=== PATIENT | female | born 1940 | race Caucasian/White ===

== ENCOUNTER 2019-08-08 14:59 | Observation (INO) ==
[~2019-08-08 14:59] MED LIST: BREO ELLIPTA 100/25 MCG INH INH SCH; LASIX IV ONE; LASIX PO PRN; PHENERGAN PO PRN; SALINE LOCK IV FLUID XX ONE
[2019-08-08 15:51] LABS: BASO# 0.05 X1000 (0.0-0.2); BASO% 0.8 % (0.0-0.8); EOS# 0.19 X1000 (0.0-0.7); HEMATOCRIT 41.8 % (37.0-47.0); HEMOGLOBIN 12.5 g/dL (12.0-16.0); IMM GRAN# 0.02 X1000 (0.0-0.04); IMM GRAN% 0.3 % (0.0-0.5); LYMPH# 1.97 X1000 (1.2-3.4); LYMPH% 31.2 % (20.5-51.1); MCH 30.1 PG (27-31); MCHC 29.9 g/dL (33-37); MCV 100.7 FL (81-99); MONO# 0.58 X1000 (0.11-0.59); MONO% 9.2 % (1.7-9.3); MPV 10.5 FL (7.4-10.4); NEUT% 55.5 % (42.2-75.2); PLT 167 X1000 (130-400); RBC 4.15 XMIL (4.2-5.4); RDW 14.4 % (11.5-14.5); WBC 6.31 X1000 (4.8-10.8)
[2019-08-08] MEDS: NS 1,000 ML IV SCH (15:52)
[2019-08-08 16:04] LABS: INR 0.91; PROTIME 12.4 Seconds (11.0-16.0)
[2019-08-08 16:18] LABS: ALB/GLOB RATIO 1.1; ALBUMIN 4.2 g/dL (3.5-5.0); CALCIUM 9.2 mg/dL (8.8-10.2); CREATININE 1.3 mg/dL (0.5-0.9); POTASSIUM 5.4 mmol/L (3.5-5.1); TOTAL BILIRUBIN 0.21 mg/dL (0.20-1.00); TOTAL PROTEIN 8.1 g/dL (6.3-8.3)
[2019-08-08 16:54] LABS: FREE T4 1.05 ng/dL (0.93-1.70); TSH 1.74 uIUmL (0.27-4.20)
[2019-08-08] MEDS: CARAFATE PO SCH (20:28)
[2019-08-08] MEDS ORDERED: SYNTHROID PO SCH (21:00)
[2019-08-08] MEDS ORDERED: ZOLOFT PO SCH (21:00)
--- NOTE | 2019-08-08 23:06 | HISTORY AND PHYSICAL ---
ATTENDING PHYSICIAN: Dr. Hammad Amador. ADMITTING PHYSICIAN: Dr. Hammad Amador. CHIEF COMPLAINT: Palpations, lower extremity edema and progressive shortness of breath. Mrs. Saenz is a pleasant 79 -year-old female patient mine with multiple medical problems including but not limited to shortness of breath, morbid obesity, chronic low back pain, bilateral osteoarthrosis, vitamin D deficiency, diabetes historically poorly controlled complicated by the disseminated intravascular coagulation nephropathy, restless legs syndrome, overactive bladder, thyroid nodularity, cognitive decline, hypothyroidism, generalized abdominal pain, hypertension, chronic respiratory failure with hypoxia, chronic constipation, alpha 1 antitrypsin deficiency, abdominal hernia, bunion of right and left foot and hammertoe deformity. She presents to the clinic with shortness of breath progressing over the past several days stating she was normal however Thursday she was noted to have some dyspnea with exertion and dyspnea with rest, some palpitations which appearred to progress over the course of the weekend resulting in unfitfull sleep also some nonspecific increase in lower extremity edema over the past week. She does carry a diagnosis of hypertension historically poorly controlled as well as venous stasis chronic lower extremity edema and atherosclerotic coronary artery disease. She had a cardiac catheterization as recently in August 2018 but nonobstructive coronary disease following abnormal calcium score suggesting diffuse atherosclerosis. EKG is obtained in the clinic showing a leftward axis secondary to left anterior fascicular block this is unchanged, T-wave in V2 however is inverted, this is a new finding when compared to previous EKG dated 01/18/2019. This T-wave is a new EKG change, the T-wave amplitude is somewhat flattened in V3 as well. Based on the presence of new EEG changes when compared to January and now history of coronary disease patient is admitted to the internal medicine service for overnight observation and possible elective risk stratification. ALLERGIES: The patient is allergic to sulfa resulting in rash and Amitiza resulting in nausea. CURRENT MEDICATIONS: Zoloft 200 mg once daily, IVIG once monthly, supplemental oxygen 3 L, Co- Q10 100 mg once a day, Metamucil as directed, gabapentin 300 mg twice daily, vitamin D over the counter supplement 1000 international units once daily, vitamin C over the counter supplement, Breo 100/25 one puff once daily, Coreg 6.25 one p.o. b.i.d., supplemental B12 over the counter 1000 mcg, lactulose as directed, milk of magnesia as directed, Aricept 5 mg p.o. daily, potassium chloride 10 mEq p.o. daily, Mirapex 0.5 mg p.o. at bedtime, Reglan 5 mg per 5 mL 1 teaspoon t.i.d., Levothyroxine 150 mcg once daily, Phenergan 25 mg q.8 p.r.n., Pravachol 40 mg p.o. at bedtime, Prilosec timm-ler-yekrbsr 20 mg p.o. daily, Zanaflex 4 mg q.8 hours p.r.n., Lasix 40 mg b.i.d., Aldactone 25 mg every other day for lower extremity swelling. FAMILY HISTORY: Father colon cancer 83, mother 82 kidney failure and Alzheimer's, sister diagnosed colon cancer 2015, sister 73 [place]ree no issues, sister [place] 71 from heart failure, COPD and lymphoma, sister 69 heart failure, COPD and kidney failure, sister 66 diagnosed with ovarian cancer 2018 also with dementia issues. Patient is with 4 children 56, 55, 53 and 44, 5 grandchildren and 3 great-grandchildren. Patient for 58 years in 2019 having been in 1961. 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 PAST SURGERIES: Back surgery with herniated disk 2006, cataract surgery left side 2015, cholecystectomy in 2008, pre Lap-Band surgery with Dr. Michelle, hysterectomy without oophorectomy in 1981 for dysfunctional uterine bleeding, Lap-Band procedure in 2008 with multiple complications eventually leading to permanent longstanding gastroparesis with feeding tube, Lap- Band removal in 2008, Botox injections in 2013 and 2015 for overactive bladder. SPECIALTY CARE: Patient does have a drink mixer Dr. Kohli, sleeping car conductor Dr. Yanes, certified master safe technician oncologist Dr. Mao, she is a pain clinic patient, she sees Dr. Taylor on a regular basis and Dr. Parada, the last annual wellness visit February 2019, her last comprehensive reassessment and annual exam in January . REVIEW OF SYSTEMS: Twelve-point review of systems is unremarkable except that noted within the HPI. Cardiac catheterization in 2018 showing 30% LAD, 20% RCA, 60% ejection fraction and a negative stress test noted to be September 2016, last cardiac echocardiogram noted to be September 2016, some additional studies over the past [address] scan of the abdomen and pelvis in January, calcium scoring the fall, CT scan of the chest in the fall, CT scan of the neck in the fall, thyroid evaluation in June, an MRI of the C-spine in June, cardiac catheterization in August. ER evaluation for cellulitis in 09/2018 and now admission for shortness of breath, lower extremity edema and nonspecific abnormal EKG in July 2019. Pupils are equal and reactive to light. Neck: Soft and supple without lymphadenopathy or bruits. Cardiovascular: Regular rate and rhythm without murmurs, gallops or rubs. Lungs: Clear, there is some nonspecific crackles in the posterior right base. Abdomen: Protuberant and nonspecifically tender. Extremities: Bound with Kerlix gauze and FABRICIO bandage, these will be removed in the hospital for evaluation. They are removed at the bedside demonstrating the left lower extremity slightly bigger than the right lower extremity, no pitting edema is appreciated once the bandages are removed. Cranial nerves 2-12 are grossly intact. Patient is alert, oriented x3 without any cognitive deficiencies and the family is at the bedside. LABORATORY: Obtained on admission white blood cell count 6.31, hemoglobin and hematocrit at 12.5 and 41.8 with platelets at 167,000. PT/INR normal. Sodium is low 134, potassium elevated at 5.4, chloride 92, BUN and creatinine at 24 and 1.3, GFR estimated at 40 mL per minute, glucose at 87, AST and ALT are normal. Initial proBNP 465, initial CK at 59, normal thyroid studies with TSH at 174 and free T4 at 1.05. Additional orders including CBC, CMP and a vitamin D for tomorrow morning. IMPRESSION: 79-year-old with multiple medical problems including but not limited to reflux, hypertension, IgG deficiency, hypothyroidism, restless legs syndrome, chronic constipation, mood disorder, diabetes, history of previous cerebrovascular accident, probable fibromyalgia syndrome, history of obstructive sleep apnea, history of diastolic congestive failure, history of morbid obesity, nonspecific cognitive issues, vitamin D deficiency, diabetes formal diagnosis in the month of 2016 with multiple readings fasting with glucoses greater than 126 mg/dL most recent hemoglobin A1c 5.1 in January, proteinuria, advanced lumbosacral spondylosis, patient with herniated disk at L2-L3 with radiation to the right lower extremity, she has been deemed nonoperable candidate in and is currently being seen at [facility], bilateral osteoarthritis, abdominal hernia per CT scan in February, multiple joint pains including left shoulder, toes, bilateral knees and atherosclerotic coronary artery disease by calcium scoring and a cardiac catheterization and accelerated weight loss approximately 30 pounds plus over the past 12 to 18 months presents to the office with complaints of shortness of breath and nonspecific EKG abnormalities, considering known coronary disease and remote echocardiogram and remote stress test patient is admitted for laboratory, serial cardiac enzymes and consideration for chemical stress test and cardiac echocardiogram. She does have some additional issues including hyperkalemia, this might be iatrogenic in nature including recent addition of Aldactone as well as ongoing utilization of potassium. Potassium will be held at the time of admission and reconsideration of ongoing use of Aldactone for lower extremity edema should be reconsidered. Patient appears to be noncompliant with regards to supplemental oxygen, this may be further contributing to shortness of breath and lower extremity edema, she states that she does use her oxygen at night, family is aware of course of treatment and plan. No further issues at this time. Note is dictated on the evening of admission. Total time spent on floor in dictation, discussion with family more than 45 minutes. cc: Hammad Amador DO
[2019-08-09 05:40] LABS: BASO# 0.03 X1000 (0.0-0.2); BASO% 0.5 % (0.0-0.8); EOS# 0.24 X1000 (0.0-0.7); EOS% 4.2 % (0.0-10.0); HEMATOCRIT 37.8 % (37.0-47.0); HEMOGLOBIN 11.5 g/dL (12.0-16.0); LYMPH# 1.61 X1000 (1.2-3.4); MCH 30.8 PG (27-31); MCHC 30.4 g/dL (33-37); MCV 101.3 FL (81-99); MONO# 0.52 X1000 (0.11-0.59); MONO% 9.1 % (1.7-9.3); MPV 10.5 FL (7.4-10.4); NEUT# 3.34 X1000 (1.4-6.5); NEUT% 58.2 % (42.2-75.2); PLT 147 X1000 (130-400); RBC 3.73 XMIL (4.2-5.4); RDW 14.3 % (11.5-14.5); WBC 5.74 X1000 (4.8-10.8)
[2019-08-09] MEDS: NS 1,000 ML IV SCH (05:52)
[2019-08-09] MEDS: SYNTHROID PO SCH ×2 (06:00→12:39)
[2019-08-09 06:24] LABS: AGAP 13; ALBUMIN 3.6 g/dL (3.5-5.0); ALKALINE PHOSPHATASE 84 U/L (32-104); BUN 23 mg/dL (8-22); CALCIUM 8.8 mg/dL (8.8-10.2); CHLORIDE 94 mmol/L (98-107); CK PROFILE 49 U/L (24-173); COSMO 282; CREATININE 1.2 mg/dL (0.5-0.9); ESTIMATED GFR 43; GLUCOSE 117 mg/dL (70-104); GOT 9 U/L (10-30); GPT 7 U/L (10-36); POTASSIUM 4.6 mmol/L (3.5-5.1); SODIUM 139 mmol/L (136-145); TCO2 32 mmol/L (25-35); TOTAL BILIRUBIN < 0.15 mg/dL (0.20-1.00); TOTAL PROTEIN 7.1 g/dL (6.3-8.3)
--- NOTE | 2019-08-09 07:37 | EKG Report ---
Test Performed on : 08/09/2019 07:07:01 AM Test Reason : abnormal ekg Blood Pressure : / mmHG Vent. Rate : 073 BPM Atrial Rate : 073 BPM P-R Int : 184 ms QRS Dur : 110 ms QT Int : 402 ms P-R-T Axes : 047 -41 053 degrees QTc Int : 442 ms Normal sinus rhythm. Left axis deviation Abnormal ECG When compared with ECG of 12-JUL-2018 09:59, No significant change was found Confirmed by Angel Portillo MD ([id number]) on 08/09/2019 1:26:00 PM
[2019-08-09 08:15] LABS: URINE SOURCE CATH
[2019-08-09 08:21] LABS: BILIRUBIN URINE NEGATIVE (NEGATIVE); BLOOD URINE TRACE (NEGATIVE); COLOR STRAW; GLUCOSE URINE NEGATIVE (NEGATIVE); KETONE URINE NEGATIVE (NEGATIVE); LEUKOCYTES URINE NEGATIVE (NEGATIVE); NITRITE URINE NEGATIVE (NEGATIVE); PH URINE 7.5; PROTEIN URINE NEGATIVE (NEGATIVE); SP GRAVITY URINE 1.011; TURBIDITY URINE CLEAR (CLEAR); UR EPITHELIAL CELLS <10 /HPF (<10); URINE BACTERIA NEGATIVE /HPF; URINE WBC <10 /HPF (<10); UROBILINOGEN URINE NORMAL (NORMAL)
[2019-08-09] MEDS ORDERED: ZOLOFT PO SCH (09:00)
[2019-08-09] MEDS ORDERED: ASPIRIN PO SCH (09:00)
[2019-08-09] MEDS ORDERED: COREG PO SCH (09:00)
[2019-08-09] MEDS ORDERED: PRILOSEC PO SCH (09:00)
[2019-08-09] MEDS ORDERED: MIRAPEX PO SCH (09:00)
[2019-08-09] MEDS ORDERED: LEXISCAN ONE (10:09)
[2019-08-09] MEDS: CARAFATE PO SCH (12:39)
--- NOTE | 2019-08-09 13:49 | Diag Imaging Result Document ---
PROCEDURE NAME: MYOCARDIAL PERF SCAN, STR/REST - 08/09/2019 PROCEDURE PERFORMED: Lexiscan sestamibi interpretation. SUMMARY: The patient was administered 15.7 mCi of technetium 99-m sestamibi, after which resting cardiac images were obtained. The patient was subsequently administered Lexiscan 0.4 mg intravenously, after which the heart rate went from 67 beats per minute to 82 beats per minute. The blood pressure went from 133/77 to 159/81. With Lexiscan, the patient denied chest discomfort. Following the administration of Lexiscan, the patient was administered 46.9 mCi of technetium 99-m sestamibi, after which gated stress cardiac images were obtained. Baseline ECG demonstrated sinus rhythm and was within normal limits. Following the administration of Lexiscan, there were no diagnostic ST-segment changes. SPECT images were reconstructed in the short, horizontal long, and vertical long axes. Review of these images demonstrated no convincing scintigraphic evidence of inducible myocardial ischemia or prior infarct. Gated images demonstrated a calculated left ventricular ejection fraction of 77% with symmetrical wall motion. CONCLUSIONS: 1. Adequate response to Lexiscan. 2. Clinically negative for chest pain. 3. Electrocardiographically negative for Lexiscan-induced myocardial ischemia. 4. Lexiscan sestamibi images demonstrated no convincing scintigraphic evidence of inducible myocardial ischemia. Normal left ventricular systolic function demonstrated. cc: MD Hammad De La Rosa DO
--- NOTE | 2019-08-09 14:39 | ECHO REPORT ---
ORDER DATE: 08/08/2019 INDICATION: Dyspnea on exertion. Abnormal EKG. FINDINGS: 1. Right atrium appears normal in size at 3.9 cm. 2. Mild tricuspid regurgitation. RV systolic pressure 64. 3. Normal RV size and systolic function. 4. No significant pulmonic insufficiency. 5. Moderate left atrial enlargement. Dimension of 4.7 cm. 6. No mitral valve prolapse. Mild mitral regurgitation. No mitral stenosis. 7. Normal LV size, end-diastolic dimension of 5.1. Normal wall thicknesses with a posterior and interventricular septal wall thickness 1.1 cm each. Normal LV systolic function. Estimated EF of 60% with normal wall motion. 8. Aortic valve opens well. No evidence of stenosis or insufficiency. 9. Aorta appears normal in visualized segments. 10. No pericardial effusion seen. cc: MD Hammad Mendieta DO
[2019-08-09 16:15] VITALS: BP 126/58
[2019-08-09] MEDS ORDERED: PRAVACHOL PO SCH (21:00)
== END 2019-08-09 19:19 | disposition home or self-care (01) ==
LOC: DIRADM → 2N 14:59
PROVIDERS: ADMIT Internal Medicine; ATTEND Internal Medicine

== ENCOUNTER 2019-09-26 13:41 | Inpatient (IN) ==
[2019-09-26] MEDS ORDERED: SALINE LOCK IV FLUID XX ONE (13:58)
[2019-09-26] MEDS ORDERED: LOVENOX SUBQ SCH (14:00)
--- NOTE | 2019-09-26 16:29 | Diag Imaging Result Doc PS360 ---
EXAM: CHEST-PORTABLE 09/26/2019 HISTORY: RUBIO TECHNIQUE: AP upright portable at 1615 COMMENT: The inspiration is less optimal than on 01/24/2019. The opacities previously demonstrated in the left lower lobe were not as well seen. There may be some atelectasis over the right lower lobe. IMPRESSION: Basilar atelectasis. Electronically signed by Erwin Plaza 09/26/2019 4:26 PM
[2019-09-26 18:04] LABS: BASO# 0.03 X1000 (0.0-0.2); BASO% 0.4 % (0.0-0.8); EOS# 0.18 X1000 (0.0-0.7); EOS% 2.3 % (0.0-10.0); HEMOGLOBIN 11.4 g/dL (12.0-16.0); IMM GRAN# 0.02 X1000 (0.0-0.04); IMM GRAN% 0.3 % (0.0-0.5); LYMPH# 1.52 X1000 (1.2-3.4); LYMPH% 19.8 % (20.5-51.1); MCH 29.8 PG (27-31); MCV 99.5 FL (81-99); MONO# 0.75 X1000 (0.11-0.59); MONO% 9.8 % (1.7-9.3); MPV 10.7 FL (7.4-10.4); NEUT# 5.17 X1000 (1.4-6.5); NEUT% 67.4 % (42.2-75.2); PLT 173 X1000 (130-400); RBC 3.82 XMIL (4.2-5.4); RDW 14.2 % (11.5-14.5); WBC 7.67 X1000 (4.8-10.8)
[2019-09-26 18:11] LABS: INR 1.01; PROTIME 13.4 Seconds (11.0-16.0)
[2019-09-26 18:29] LABS: ALB/GLOB RATIO 1.4; ALBUMIN 3.7 g/dL (3.5-5.0); POTASSIUM 3.8 mmol/L (3.5-5.1); TOTAL BILIRUBIN 0.15 mg/dL (0.20-1.00); TOTAL PROTEIN 6.4 g/dL (6.3-8.3)
[2019-09-26 18:44] LABS: FREE T4 1.12 ng/dL (0.93-1.70); TSH 3.34 uIUmL (0.27-4.20)
[2019-09-26] MEDS ORDERED: CARDIZEM IV ONE (19:05)
[2019-09-26] MEDS: CARDIZEM 100 MG/NS 100 MG/100 ML IVPB IV SCH (20:20)
[2019-09-26] MEDS: ASPIRIN PO SCH (20:35)
[2019-09-26] MEDS: PRAVACHOL PO SCH (20:35)
[2019-09-26] MEDS: MIRAPEX PO SCH (20:35)
[2019-09-26] MEDS: LASIX PO SCH (20:35)
[2019-09-26] MEDS: COREG PO SCH (20:35)
[2019-09-26] MEDS: ELIQUIS PO SCH (20:39)
--- NOTE | 2019-09-26 22:32 | HISTORY AND PHYSICAL ---
ATTENDING PHYSICIAN: Dr. Hammad Amador. ADMITTING PHYSICIAN: Dr. Hammad Amador. CHIEF COMPLAINT: Shortness of breath and smothering feeling. HISTORY OF PRESENT ILLNESS: Mrs. Saenz is a pleasant 79-year-old patient with multiple medical problems including, but not limited to, paroxysmal atrial fibrillation previously well controlled on beta vaishali. She has currently been undergoing a 30 day event monitor which demonstrates some paroxysmal episodes, but nothing sustained and no history of A fibrillation/A flutter combination, alpha 1 antitrypsin deficiency, chronic constipation, memory loss, morbid obesity, secondary to excessive calorie intake, multinodular goiter, spondylosis of the cervical region, overactive bladder, reflux esophagitis, restless legs syndrome, rheumatoid arthritis, spondylolisthesis of the lumbosacral region, vitamin D deficiency, atherosclerotic coronary artery disease, history of diastolic congestive failure, chronic respiratory failure with hypoxia, chronic venous hypertension, hypertension, hypothyroidism, elevated PA pressures, diabetes with nephropathy and poorly controlled diabetes with hyperglycemia. The patient presents to the office with several days of racing heart rate. She states that she cannot move from room to room without severe shortness of breath. She also reports increased nausea. Her heart rate per pulse oximetry in excess of 140 starting on Thursday. She has been having several days of smothering sensation and sleeping in the recliner for the past 3 nights. Prior to that she was sleeping in the bed with the head elevated. She denies any fevers. She denies any night sweats. She reports some nonspecific chills. EKG demonstrates A flutter with 2 to [address]-segment elevation in the inferior and mid to lateral precordial leads. Additional laboratories shows an alkalosis likely volume contraction secondary to aggressive diuresis over the weekend in hopes that this would make her breathing better. It has been explained to the patient that she is in a tachy dysrhythmia and that conversion to normal sinus rhythm either with medications or with DC cardioversion will likely be the only restorative cure. She is admitted to the internal medicine service for initiation of a Cardizem drip after consultation with cardiology and possible transesophageal echo with cardioversion in the morning. ALLERGIES: To sulfa and Amitiza. MEDICATIONS ON ADMISSION: Zoloft 200 mg a day, IVIG infusions p.r.n., continuous oxygen per nasal cannula at 2 L, CoQ-10 100 mg once daily, Breo inhaler 100/25 one puff once daily, vitamin B12 replacement, lactulose 10 g/15 mL 30 mL twice daily, milk of magnesia p.r.n., Aricept 10 mg p.o. at bedtime, Mirapex 0.5 mg p.o. at bedtime, Pravachol 40 mg p.o. daily, Prilosec 40 mg p.o. daily, Lasix 40 mg p.o. b.i.d., aspirin 81 mg once daily, Lyrica 150 mg twice daily, Coreg 6.25 mg b.i.d. (this will be held at the time of admission), and levothyroxine 125 mcg once daily. FAMILY HISTORY: Father 83 secondary to colon cancer. Mother 82 secondary to Alzheimer's and renal failure. Sister 76 diagnosed with colon cancer in 2016. Sister at 73 unremarkable health. Sister at 71 secondary to heart failure/COPD and lymphoma. Sister at 69 secondary to heart failure, COPD and renal failure. Sister 66 diagnosed with ovarian cancer in 2018. The patient is with 4 children 56, 55, 53 and 44. She has 8 grandchildren and she has been since 1960 for 58 years. She has a short stent in [employer], but stayed at home for more than 53 years raising 4 girls. She is a nonsmoker and nondrinker. Travel history is unremarkable. Living well with reasonable medical effort. SURGERIES: Back surgery for herniated disk in 2006, cataract surgery on the left in 2015, cholecystectomy in 2008, lap band procedure in 2008, hysterectomy without oophorectomy in 1981 for dysfunctional uterine bleeding, Botox injection in the bladder in 2013 and 2016 for overactive bladder. PRIMARY SPECIALIST: Including Dr. José Kohli, [facility]. Most recently seen in October of 2018. Patient's primary high pressure kettle operator is on vacation. Last annual wellness visit is not well documented. Perhaps as recently as January 2018. REVIEW OF SYSTEMS: Review of systems is unremarkable except that noted within the HPI. PHYSICAL EXAMINATION: HEENT: Unremarkable. CARDIOVASCULAR: With tachycardia. EKG showing regularity with 2 to [address]-segment elevation inferior and in the mid to lateral precordial. LUNGS: Clear without wheezes, rhonchi, or rales. ABDOMEN: Obese with normoactive bowel sounds. No focal area of tenderness, rebound or guarding. EXTREMITIES: Lower extremities with nonpitting edema. There is trace pitting edema about the ankles bilaterally. The right leg greater than the left leg. Chronic articular deformities with bilateral bunions and hammer toes bilaterally are noted. NEUROLOGICAL: Cranial nerves 2-12 are grossly intact. Patient is alert oriented x3 without any cognitive deficiencies. LABORATORY: On admission, white blood cell count 7.67, H H 11.4 and 38.0, platelets at 173,000. PT/INR at 13.4 and 1.0. Sodium 137, potassium at 3.8, chloride 88. Bicarb is elevated at 42, highly suspicious for contraction alkalosis. BUN and creatinine at 19 and 1.0. Glucose at 102, magnesium at 2.2. AST and ALT are normal. Alkaline phosphatase is normal. Initial CK at 35 with negative troponin. TSH and T4 are unremarkable. ProBNP is pending at the time of admission. IMPRESSION: 1. A 79-year-old with symptomatic atrial dysrhythmia specifically atrial flutter with 2-to-1 block. This in the context of historical/paroxysmal atrial fibrillation previously well controlled on a beta vaishali alone. After preliminary consultation with cardiology, she will be started on a Cardizem drip after a small 10 mg IV bolus as loading and then titrate it accordingly. She will be remained NPO after midnight with anticipation for transesophageal echo plus or minus cardioversion should she fail to spontaneously convert overnight. She has been started on anticoagulant therapy specifically Eliquis 5 mg b.i.d. 2. With regards to her contraction alkalosis, I suspect that this is aggressive diuresis. She did receive a couple extra doses of 40 mg of Lasix over the weekend in anticipation of our appointment this afternoon. However, she does not appear to be in overt congestive failure or fluid overload status. I did attempt to contact Dr. Kohli, the patient's primary high pressure kettle operator today, however he is on vacation and felt that it was prudent based on patient's symptomatology that she be admitted to the internal medicine service with cardiology consultation and probable cardioversion plus or minus chemical conversion, whichever proved beneficial. The patient's last admission is noted to be July 2019. She was admitted at that time with a myocardial perfusion scan as well as a cardiac echo that demonstrated increased pulmonary pressures at 64 mmHg, moderate left atrial enlargement, with normal appearing right atrium. Ejection fraction at 60%. TIME SPENT: Total time spent in clinic and on floor and at bedside more than 90 minutes. Patient understands course of treatment and plan. No further issues at this time. We will continue to follow along as cardiology recommends. No additional recommendations at this time. cc: Hammad Amador,
[2019-09-27] MEDS: CARDIZEM 100 MG/NS 100 MG/100 ML IVPB IV SCH (05:16)
[2019-09-27] MEDS: ELIQUIS PO SCH ×3 (06:01→21:27)
[2019-09-27] MEDS: SYNTHROID PO SCH (06:01)
--- NOTE | 2019-09-27 07:11 | EKG Report ---
Test Performed on : 09/27/2019 06:44:01 AM Test Reason : Post-Admission Blood Pressure : / mmHG Vent. Rate : 113 BPM Atrial Rate : 278 BPM P-R Int : 000 ms QRS Dur : 098 ms QT Int : 202 ms P-R-T Axes : 086 -43 067 degrees QTc Int : 277 ms Critical Test Result: STEMI Atrial flutter. with variable AV block. Left axis deviation Pulmonary disease pattern ST elevation, consider inferior injury or acute infarct ACUTE NH / STEMI Abnormal ECG When compared with ECG of 09-AUG-2019 07:07, Significant changes have occurred Confirmed by Christel WOODARD, Thierno ([id number]) on 09/28/2019 8:32:39 AM
[2019-09-27] MEDS: BREO ELLIPTA 100/25 MCG INH INH SCH (07:47)
[2019-09-27] MEDS: LASIX PO SCH ×2 (09:12→21:27)
[2019-09-27] MEDS: PRILOSEC PO SCH (09:12)
[2019-09-27] MEDS: ZOLOFT PO SCH (09:12)
[2019-09-27] MEDS: COREG PO SCH ×2 (09:12→21:27)
[2019-09-27] MEDS ORDERED: TYLENOL PO PRN (09:34)
[2019-09-27] MEDS ORDERED: CORDARONE 150 MG/D5W 150 MG/100 ML IV.SOLN IV ONE (10:00)
[2019-09-27] MEDS ORDERED: CORDARONE 360 MG/D5W 360 MG/200 ML IV.SOLN IV ONE (10:20)
[2019-09-27] MEDS ORDERED: XYLOCAINE 4% TOPICAL SOLUTION ONE (11:06)
[2019-09-27] MEDS ORDERED: XYLOCAINE 2% VISCOUS ONE (11:06)
[2019-09-27] MEDS ORDERED: DIPRIVAN 1% ONE (11:44)
[2019-09-27] MEDS ORDERED: XYLOCAINE-MPF 2% ONE (12:38)
[2019-09-27] MEDS ORDERED: CORDARONE 540 MG in D5W 289.2 ML IV ONE (16:00)
--- NOTE | 2019-09-27 16:28 | EKG Report ---
Test Performed on : 09/27/2019 4:14:29 PM Test Reason : post CVN Blood Pressure : / mmHG Vent. Rate : 060 BPM Atrial Rate : 060 BPM P-R Int : 184 ms QRS Dur : 110 ms QT Int : 466 ms P-R-T Axes : 043 -32 002 degrees QTc Int : 466 ms Normal sinus rhythm. Left axis deviation T wave abnormality, consider anterolateral ischemia Abnormal ECG When compared with ECG of 27-SEP-2019 06:44, (Unconfirmed) Sinus rhythm. has replaced Atrial flutter. Vent. rate has decreased BY [address] no longer elevated in Inferior leads Inverted T waves have replaced nonspecific T wave abnormality in Anterior leads Confirmed by Christel WOODARD, Thierno ([id number]) on 09/28/2019 8:36:20 AM
--- NOTE | 2019-09-27 19:30 | CONSULTATION ---
DATE OF CONSULTATION: 09/27/2019 IMPRESSION: 1. Atrial flutter with rapid ventricular rate probably ongoing several days prior to admission. Patient has previous episodes of palpitations in the recent past. 2. Hypertension. 3. Atherosclerotic coronary disease. 4. Type 2 diabetes mellitus. 5. Hyperlipidemia. 6. Obesity. 7. Obstructive sleep apnea. 8. Tendency for gastroesophageal reflux as well as gastroparesis with history of previous bariatric surgery in the past. 9. Some tendency for recurrent falls. Patient ambulates with a walker and had a fall 6 months ago when she suffered a nose fracture. There is no history of syncope. RECOMMENDATIONS: 1. Given persistent tachycardia despite IV diltiazem, add IV amiodarone. 2. Continue Coreg. 3. Agree with anticoagulation. 4. Favor pursuit of transesophageal echocardiography/cardioversion in effort to restore sinus rhythm. 5. Ultimately patient would benefit from electrophysiology consultation to address long-term management questions for atrial flutter. HISTORY: This 79-year-old white female with past history of hypertension, type 2 diabetes mellitus, obesity, hyperlipidemia, sleep apnea and coronary atherosclerosis was admitted yesterday after several days of tachy palpitations. She is found to be in atrial flutter with rapid ventricular rate, has been started on intravenous Cardizem. She still has some tendency for elevated heart rate. She relates onset of tachy palpitations late last week that have not relented. She has previous palpitations of shorter duration in the past and actually had a recent event recorder initiated. She had monitor for several days after which it stopped functioning and was to get another monitor. She denies any chest pain, shortness of breath, presyncope or syncope. She does ambulate with a walker and has had several falls. From her description this sounds like she has some tendency for gait instability. She fell this past February and suffered a nose fracture. PAST MEDICAL HISTORY: 1. Obesity. 2. Hypertension. 3. Type 2 diabetes mellitus. 4. Obstructive sleep apnea. 5. Hyperlipidemia. 6. Hypothyroidism. 7. Coronary atherosclerosis. Patient has no angina. 8. Gastroesophageal reflux. 9. Gastroparesis. PAST SURGICAL HISTORY: Includes cholecystectomy, hysterectomy, Lap-Band surgery and left-sided cataract extraction. ALLERGIES: She is allergic or intolerant to sulfa . MEDICATIONS PRIOR TO ADMISSION: As listed. SOCIAL HISTORY: She is and lives with her . She is a nonsmoker and does not use alcohol. She ambulates with aid of walker due a tendency for gait instability and falls. FAMILY HISTORY: Negative for premature coronary disease. REVIEW OF SYSTEMS: Pulmonary: Noncontributory beyond history of present illness. Gastrointestinal: Noteworthy for tendency for gastroesophageal reflux. Constitutional: Noncontributory. Remainder review of systems negative/noncontributory with 14 total systems reviewed. PHYSICAL EXAMINATION: General: This is a obese, elderly white female in no distress. Vital signs: Blood pressure 109/81, heart rate 110 with ECG monitor showing atrial flutter. Oxygen saturation 96% on nasal cannula oxygen. HEENT: Extraocular movements intact. Mucous membranes moist. Neck: Supple without discernible jugular distention. No carotid bruits. Chest: Clear to auscultation. Cardiac: Reveals a irregular tachycardia without appreciable murmur or gallop. Abdomen: Soft. Bowel sounds are normal. Extremities: Demonstrate mild pretibial and pedal edema. Patient also has some edema in her left hand and to a lesser extent, in the right hand. Neurologic: Reveals her to be awake and responsive. Speech is fluent. She moves all 4 extremities equally well. DATA: Twelve lead EKG demonstrates atrial flutter with variable AV block, left axis deviation and delayed precordial R-wave progression. LABORATORY DATA: Includes a white blood cell count 7.67, hematocrit 38.0, hemoglobin 11.4, platelet count 173,000. Sodium 137, potassium 3.8, chloride 88, carbon dioxide 42, BUN 19, creatinine 1.0, glucose 102. TSH 3.34, free T4 1.12. cc: MD Hammad De La Rosa DO MTDD
--- NOTE | 2019-09-27 19:44 | CARDIAC CATH REPORT ---
PROCEDURE NAME: - SUMMARY: Patient already under conscious sedation with propofol per Anesthesiology following transesophageal echocardiography which demonstrated no evidence of intracardiac thrombus. Patient subsequently underwent synchronized direct current cardioversion with 50 joules, converting atrial flutter to sinus rhythm. There were no apparent complications. CONCLUSION: Successful cardioversion of atrial flutter to sinus rhythm. cc: MD Hammad De La Rosa DO
[2019-09-27] MEDS: MIRAPEX PO SCH (21:26)
[2019-09-27] MEDS: PRAVACHOL PO SCH (21:27)
[2019-09-27] MEDS: ASPIRIN PO SCH (21:27)
--- NOTE | 2019-09-27 23:50 | ECHO REPORT ---
ORDER DATE: 09/27/2019 SUMMARY: After intravenous sedation with propofol fall per Anesthesiology, I passed the transesophageal echocardiography probe into the patient's esophagus without difficulty. Transesophageal echocardiography was subsequently performed without incident and demonstrated: 1. The aortic valve is trileaflet and opens normally on 2-dimensional images. There is trace aortic regurgitation. Mitral valve is without evidence of structural abnormality with mild mitral regurgitation. Tricuspid valve is without evidence of structural abnormality, with mild tricuspid regurgitation. Pulmonic valve is without evidence of structural abnormality. The aortic root is normal in size. 2. Normal left ventricular chamber size with normal wall thickness demonstrated. The estimated left ventricular ejection fraction appears to be at least 60%. No regional wall motion abnormalities are evident. Mild to moderate left atrial enlargement is demonstrated. The right atrium appears normal in size. The right ventricle appears mildly enlarged. 3. Interatrial septum appears intact without evidence on color Doppler of interatrial shunting. Intravenous agitated saline contrast study reveals no evidence of [id number] intracardiac shunting. 4. All 4 cardiac chambers and left atrial appendage appear free of intracardiac thrombus. 5. No pericardial effusion. 6. Ascending thoracic aorta reveals no evidence of atherosclerotic plaquing. cc: MD Virginia De La Rosa PA Jeffrey A. Johnson, DO
[2019-09-28] MEDS: SYNTHROID PO SCH ×2 (05:55→06:20)
[2019-09-28 06:23] LABS: URINE SOURCE CATH
[2019-09-28 06:37] LABS: BILIRUBIN URINE NEGATIVE (NEGATIVE); BLOOD URINE MODERATE (NEGATIVE); COLOR YELLOW; GLUCOSE URINE NEGATIVE (NEGATIVE); KETONE URINE NEGATIVE (NEGATIVE); LEUKOCYTES URINE MODERATE (NEGATIVE); NITRITE URINE NEGATIVE (NEGATIVE); PROTEIN URINE 30 mg/dL (NEGATIVE); SP GRAVITY URINE 1.018; TURBIDITY URINE CLEAR (CLEAR); UROBILINOGEN URINE NORMAL (NORMAL)
[2019-09-28 06:39] LABS: UR EPITHELIAL CELLS >10 /HPF (<10); URINE BACTERIA NEGATIVE /HPF; URINE RBC 20-40 /HPF (<10); URINE WBC TNTC /HPF (<10)
[2019-09-28] MEDS: BREO ELLIPTA 100/25 MCG INH INH SCH (07:53)
[2019-09-28] MEDS ORDERED: CORDARONE PO SCH ×2 (09:00→21:00)
[2019-09-28] MEDS: COREG PO SCH (09:31)
[2019-09-28] MEDS: LASIX PO SCH (09:32)
[2019-09-28] MEDS: ZOLOFT PO SCH (09:32)
[2019-09-28] MEDS: PRILOSEC PO SCH (09:32)
[2019-09-28] MEDS: ELIQUIS PO SCH (09:32)
[2019-09-28 11:23] VITALS: BP 122/83
--- NOTE | 2019-10-09 06:00 | DISCHARGE SUMMARY ---
ADMISSION DATE: 09/26/2019 DISCHARGE DATE: 09/28/2019 DISCHARGE DIAGNOSES: 1. Atrial flutter, asymptomatic, status post direct-current cardioversion via transesophageal echocardiogram. 2. Metabolic alkalosis, likely contraction mediated secondary to aggressive diuretic use. 3. Abnormal urine with negative urine growth. CONSULTATIONS: Cardiology for atrial flutter management. PROCEDURES: Transesophageal echocardiography with synchronized DC cardioversion at 50 joules, converting atrial flutter to sinus rhythm on 09/27. The patient is started on amiodarone 400 mg once daily as a maintenance medication as well as the addition of Eliquis 5 mg twice daily for cardioembolic prophylaxis. HOSPITAL COURSE: Mrs. Saenz presented to the Internal Medicine service with shortness of breath and found to be in Aflutter with 2:1 block, it was felt that she would be best served with evaluation by Cardiology, clearance of intracardiac thrombus and consideration for DC cardioversion. Her normal service girl was out of the office and, therefore, she was admitted to [facility] and [facility] [place] service girl were consulted, recommending DC cardioversion secondary to failure to spontaneously convert with initiation of IV antiarrhythmic. She underwent DC cardioversion and was put on maintenance medication and will be discharged to home with interval follow up with Cardiology on the 11/03/2019 at 1 p.m. She will have followup with wi on 10/04 at 2:15 p.m. She will be discharged back to home health care services. DISCHARGE MEDICATIONS: 1. Tylenol 500 mg over the counter p.r.n. 2. Amiodarone 400 mg p.o. b.i.d. 3. Eliquis 5 mg p.o. b.i.d. 4. Aspirin 81 mg once daily. 5. Carvedilol 6.25 mg p.o. b.i.d. 6. Aricept 10 mg p.o. at bedtime. 7. Flonase as directed. 8. Lasix 40 mg b.i.d. 9. Lactulose 30 mg p.o. b.i.d. p.r.n. 10. Synthroid 150 mcg once daily. 11. Magnesium hydroxide/milk of magnesia 30 mL p.o. every other day p.r.n. 12. Reglan 5 mg t.i.d. p.r.n. 13. Prilosec 20 mg once daily. 14. Mirapex 0.5 mg p.o. at bedtime. 15. Pravachol 40 mg p.o. at bedtime. 16. Lyrica 150 mg b.i.d. 17. Phenergan 25 mg q.8 hours p.r.n. 18. Zoloft 200 mg once daily. New medication starts during this admission includin. Amiodarone. 2. Eliquis. DISPOSITION: The patient is released with interval followup as discussed. She understands the course of treatment and plan. No further issues at this time. cc: Hammad Amador DO
== END 2019-09-28 13:12 | disposition home health service (06) | DRG 309 ==
LOC: DIRADM 13:41 → 2N 15:47
PROVIDERS: ADMIT Internal Medicine; ATTEND Internal Medicine

== ENCOUNTER 2019-10-31 12:51 | Inpatient (IN) ==
--- NOTE | 2019-10-31 13:00 | PROVIDER DOCUMENTATION ---
HPI-General Adult - General Chief Complaint: Shortness of Breath Stated Complaint: SOB Time Seen by Provider: 10/31/19 14:20 Source: patient, family, EMS Allergies/Adverse Reactions: Patient Allergies Allergy/AdvReac Type Severity Reaction Status Date / Time Sulfa (Sulfonamide Allergy Severe ANAPHYLAXIS Verified 09/03/18 18:53 Antibiotics) Home Medications: Home Medication List Medication Instructions Recorded Confirmed Last Taken Type Sertraline HCl [Zoloft] 200 mg PO DAILY 01/14/16 09/26/19 1 Day Ago History ~09/02/18 Aspirin 81 mg PO QHS 03/12/17 09/26/19 09/26/19 History Carvedilol [Coreg] 6.25 mg PO BID 03/12/17 09/26/19 09/26/19 History Fluticasone/Vilanterol [Breo 1 puff IH DAILY 03/12/17 09/26/19 1 Day Ago History Ellipta 100-25 Mcg INH] ~09/02/18 PRAVAstatin [Pravachol] 40 mg PO QHS 03/12/17 09/26/19 1 Day Ago History ~09/02/18 Pramipexole Di-HCl [Mirapex] 0.5 mg PO QHS 03/12/17 09/26/19 1 Day Ago History ~09/02/18 Omeprazole [Prilosec] 20 mg PO QAM 09/03/18 09/26/19 1 Day Ago History ~09/02/18 Lactulose 30 ml PO BID 08/08/19 09/26/19 Unknown History Magnesium Hydroxide [Milk of 30 ml PO EVERY OTHER DAY 08/08/19 09/26/19 08/06/19 09:00 History Magnesia] Metoclopramide [Reglan Liquid] 5 mg PO TID AC 08/08/19 09/26/19 Unknown History Promethazine [Phenergan] 25 mg PO Q8HR PRN 08/08/19 09/26/19 Unknown History Furosemide [Lasix] 40 mg PO BID #0 08/09/19 09/26/19 1 Day Ago Rx ~09/02/18 Donepezil [Aricept] 10 mg PO QHS 09/26/19 09/26/19 Unknown History Pregabalin 150 mg PO BID 09/26/19 09/26/19 Unknown History Acetaminophen [Tylenol] 500 mg PO Q8H PRN PRN tab 09/28/19 Unknown Rx Amiodarone [Cordarone] 400 mg PO BID #60 tab 09/28/19 Unknown Rx Apixaban [Eliquis] 5 mg PO BID #60 tab 09/28/19 Unknown Rx Levothyroxine [Synthroid] 150 microgm PO DAILY@0700 tab 09/28/19 Unknown Rx - History of Present Illness -Gen Adult Nature of Presenting Problems: 79yo female presents via EMS with CC of shortness breath. Patient reports that he ShOB started today and has progressivly worsened. EMS reports that the patient was requiring 15L of O2 and was complaining of chest pain. The patient family member reports that she has had a productive cough and recent cardioversion for atrial flutter 3 weeks ago after which she has been intermittently short of breath. The family denies that the patient has had a f ever, and report that the yesterday the patient was doing better. Location of Pain/Injury: reports: chest, abdomen Associated Symptoms: reports: cough, shortness of breath. denies: fever/chills Review of Systems - Adult - REVIEW OF SYSTEMS - ADULT Constitutional: reports: no symptoms reported. denies: fever Eyes: reports: no symptoms reported. denies: eye pain Ears, Nose, Mouth & Throat: reports: no symptoms reported. denies: throat pain Cardiovascular: reports: chest pain Respiratory: reports: cough, shortness of breath Gastrointestinal: reports: abdominal pain Genitourinary: reports: no symptoms reported Musculoskeletal: reports: no symptoms reported Integumentary: reports: no symptoms reported Neurological: reports: no symptoms reported Psychiatric: reports: no symptoms reported Endocrine: reports: no symptoms reported Hematologic/Lymphatic: reports: other (IVIG treatments) Allergic/Immunologic: reports: no symptoms reported, other (IVIG treatments) Past History - Adult - PAST MEDICAL HISTORY-ADULT Review of Records: reports: Old Records Reviewed Major Childhood Illnesses: reports: denies history Cardiovascular: reports: denies history Respiratory: reports: denies history Gastrointestinal: reports: denies history Obstetrical/Gynecological: reports: denies history Genitourinary: reports: denies history Musculoskeletal: reports: denies history Neurological: reports: denies history Endocrine/Immune: reports: denies history Other Conditions: reports: denies history Physical Exam-General - PHYSICAL EXAM-ADULT Initial Vital Signs Reviewed: Yes - CONSTITUTIONAL General Appearance: moderate distress, lethargic - EYES Eyes: negative: conjuctival exudate - RESPIRATORY Respiratory: respiratory distress, decreased breath sounds, crackles (Right), increased rate - GASTROINTESTINAL (ABDOMEN) Abdominal Exam: non tender, soft, distended - MUSCULOSKELETAL Extremity: non-tender, swelling (2+ bilaterally) - SKIN Integumentary: normal color, diaphoresis - NEUROLOGIC Neurologic: grossly normal - PSYCHIATRIC Psych/Mental Status: other (disoriented) Progress - PLAN OF CARE/RESULTS Progress/Plan/Lab Results: Orders Category Date Time Status CHEST-1 VIEW [RAD] Stat Exams 10/31/19 12:52 Ordered ABG [RESP] Routine Lab 10/31/19 12:52 Ordered CBC WITH ELECTRONIC DIFF [HEME] Stat Lab 10/31/19 12:52 Uncollected COMPREHENSIVE METABOLIC PANEL [CHEM] Stat Lab 10/31/19 12:52 Uncollected PRO B-NATRIURETIC PEPTIDE Stat Lab 10/31/19 12:52 Uncollected PT [PROTIME WITH INR] [COAG] Stat Lab 10/31/19 12:52 Uncollected PTT [COAG] Stat Lab 10/31/19 12:52 Uncollected TROPONIN T HIGH SENSITIVITY Stat Lab 10/31/19 12:52 Uncollected EKG [EKG] Stat Ther 10/31/19 12:53 Ordered Result Diagrams: 10/31/19 13:37 10/31/19 16:13 - REASSESSMENT Reassessment #1 Status: improving (Patient improved on the bipap. CXR and labs consistent volume overload. Discussed with pt hospitalist team who has accepted the patient.) - EKG 1 Time of EKG reading by physician:: 19:36 EKG Read and Signed by:: Praveen Avila Rate: 43 Rhythm: sinus [place]: left QRS: other (incomplete left bundle) PA Interval: prolonged ST Wave: normal Prior EKG Comparison: changes noted Comments: heart block not noted on previous Departure - Departure Date of Disposition Decision: 10/31/19 Time of Disposition Decision: 20:07 DIAGNOSIS: CHF exacerbation Qualifiers: Heart failure type: unspecified Qualified Code(s): I50.9 - Heart failure, unspecified Disposition: ADMITTED INPATIENT 09 Certified Medical Emergency: Emergent Condition: Fair Referrals and Follow-Ups: Hammad Amador DO [Primary Care Provider] - - Critical Care Note This patient required my direct & personal management of CC.: No Attestation - Physician/ DUY Attestation Patient care was provided by Advanced Practice Provider:: No The physician spent face to face time with patient:: Yes Advanced Practice Provider documentation review:: Supervising physician onsite and consulted in the evaluation and care of this patient. The physician did have a face to face encounter with the patient.
--- NOTE | 2019-10-31 13:09 | Diag Imaging Result Doc PS360 ---
EXAM: CHEST-1 VIEW 10/31/2019 HISTORY: sob TECHNIQUE: AP portable upright at 1303 COMMENT: There is cardiomegaly. There is patchy opacity bilaterally which appears worse than on 09/26/2019. The pulmonary vascularity is more prominent. IMPRESSION: Cardiomegaly. Bilateral subsegmental atelectasis versus pneumonia. Electronically signed by Erwin Plaza 10/31/2019 1:07 PM
[2019-10-31 13:15] LABS: ALLEN TEST YES; BE 10.1 mmoll (-3.0-3.0); BLOOD TYPE ARTERIAL; HCO3-(ACT) 32.8 mmoll (20.0-26.0); O2HB 96.3 % (95.0-99.0); PO2(98.6) 134 mmHg (60-100); SAMPLE BLOOD; SAO2 99.1 % (95.0-100.0); THB 12.4 g/dL (11.5-17.4)
[2019-10-31 13:16] LABS: MODALITY NRB; PCO2(98.6) 111 mmHg (35-45); pH(98.6) 7.19 (7.35-7.45)
[2019-10-31 13:54] LABS: EOS# 0.15 X1000 (0.0-0.7); EOS% 2.5 % (0.0-10.0); HEMATOCRIT 38.5 % (37.0-47.0); HEMOGLOBIN 11.7 g/dL (12.0-16.0); LYMPH# 0.68 X1000 (1.2-3.4); LYMPH% 11.4 % (20.5-51.1); MCH 29.8 PG (27-31); MCHC 30.4 g/dL (33-37); MCV 98.2 FL (81-99); MONO# 0.27 X1000 (0.11-0.59); MONO% 4.5 % (1.7-9.3); MPV 10.4 FL (7.4-10.4); NEUT# 4.89 X1000 (1.4-6.5); NEUT% 81.6 % (42.2-75.2); PLT 144 X1000 (130-400); RBC 3.92 XMIL (4.2-5.4); RDW 14.5 % (11.5-14.5); WBC 5.99 X1000 (4.8-10.8)
[2019-10-31 14:08] LABS: INR 1.25; PROTIME 15.9 Seconds (11.0-16.0)
[2019-10-31 14:09] LABS: PTT 40.9 Seconds (22.3-41.8)
[2019-10-31] MEDS ORDERED: ZOFRAN IV ONE (14:30)
[2019-10-31 14:35] LABS: ALLEN TEST YES; BE 10.2 mmoll (-3.0-3.0); BLOOD TYPE ARTERIAL; HCO3-(ACT) 32.9 mmoll (20.0-26.0); METHB 0.8 % (0.0-1.5); O2(CT) 16.7 mL/dL (15.0-23.0); O2HB 97.3 % (95.0-99.0); PO2(98.6) 293 mmHg (60-100); SAMPLE BLOOD; THB 11.7 g/dL (11.5-17.4); pH(98.6) 7.28 (7.35-7.45)
[2019-10-31 14:43] LABS: MODALITY BI PAP; PCO2(98.6) 85 mmHg (35-45)
[2019-10-31 17:11] LABS: ALB/GLOB RATIO 0.7; ALBUMIN 3.2 g/dL (3.5-5.0); CALCIUM 8.6 mg/dL (8.8-10.2); CREATININE 1.1 mg/dL (0.5-0.9); POTASSIUM 4.6 mmol/L (3.5-5.1); TOTAL BILIRUBIN 0.16 mg/dL (0.20-1.00); TOTAL PROTEIN 7.5 g/dL (6.3-8.3)
[2019-10-31] MEDS ORDERED: LASIX IV ONE (18:11)
--- NOTE | 2019-11-01 04:48 | EKG Report ---
Test Performed on : 10/31/2019 7:36:06 PM Test Reason : Bradycardia Blood Pressure : / mmHG Vent. Rate : 043 BPM Atrial Rate : 043 BPM P-R Int : 210 ms QRS Dur : 120 ms QT Int : 502 ms P-R-T Axes : 046 -38 045 degrees QTc Int : 424 ms Marked sinus bradycardia. with 1st degree AV block. Left axis deviation Incomplete left bundle branch block Abnormal ECG When compared with ECG of 27-SEP-2019 16:14, Nonspecific T wave abnormality no longer evident in Inferior leads T wave inversion no longer evident in Anterolateral leads Unconfirmed Result
[2019-11-01 08:05] LABS: BASO# 0.02 X1000 (0.0-0.2); BASO% 0.4 % (0.0-0.8); EOS# 0.19 X1000 (0.0-0.7); HEMOGLOBIN 10.2 g/dL (12.0-16.0); LYMPH# 0.95 X1000 (1.2-3.4); LYMPH% 20.2 % (20.5-51.1); MCH 28.5 PG (27-31); MCHC 29.1 g/dL (33-37); MCV 97.8 FL (81-99); MONO% 6.4 % (1.7-9.3); MPV 10.2 FL (7.4-10.4); NEUT# 3.25 X1000 (1.4-6.5); PLT 150 X1000 (130-400); RBC 3.58 XMIL (4.2-5.4); RDW 14.6 % (11.5-14.5); WBC 4.71 X1000 (4.8-10.8)
--- NOTE | 2019-11-01 08:16 | HISTORY AND PHYSICAL ---
INDICATION FOR ADMISSION: Acute respiratory failure, hypercapnic type. Etiology queried. I suspect that it is over supplementation of oxygen. ATTENDING PHYSICIAN: Dr. Hammad Amador. ADMITTING PHYSICIAN: Dr. Hammad Amador. DATE ADMISSION: 10/20/2019. HISTORY OF PRESENT ILLNESS: Ms. Saenz is a 79-year-old female, patient of mine with multiple medical problems to include but not limited to chronic respiratory secondary to morbid obesity, pulmonary hypertension, and diastolic congestive failure, as well as some history of diabetes with renal involvement poorly controlled, overactive bladder, spondylosis of the cervical region, advanced degenerative low back disease nonoperable, hypertension, hypothyroidism, atherosclerotic coronary artery disease by cardiac cath dated 2018 with 30% LAD, 20% RCA, 30% PVL, history of chronic and generalized abdominal pain, history of bilateral osteoarthritis of the knees, bilateral bunions, restless legs syndrome and vitamin D deficiency. She was recently seen in the Internal Medicine Clinic on October 20 for interval follow up following recent addition of Aldactone to diuretic regimen for shortness of breath. She was noted at that time to have lost up to 17 pounds and she was leaving for vacation in the [employer]. The family reports that she continues with nonspecific shortness of breath with multiple potential etiologies, ongoing nausea and dizziness and increasing confusion with increased lethargy. The patient evidently increased her oxygen from 2 L to 3 L, which may have contributed to her admission CO2 of 111. There has been a generally less urinary output and some nonspecific discharge from the nose. Appetite has been poor at best. She complains of worsening upper extremity tremor and dropping things. Based on her altered mental status, confusion and hypercapnic state, she is admitted to the internal medicine service for BiPAP and pulmonary consultation. EKG in the emergency room demonstrating a bradycardia with left axis deviation, secondary to left anterior fascicular block and first-degree AV block. She also has a recent history of atrial fibrillation with 2 to 1 block status post DC cardioversion and initiation of antiarrhythmic. She is followed primarily by Dr. Kohli in [place]. FAMILY HISTORY: Father at 83 of colon cancer. Mother 82 of Alzheimer's and end- stage kidney disease. Sister 76 diagnosed with colon cancer in 2016. Sister 71 secondary to heart failure, COPD and complications of lymphoma. Another No other sister 69 secondary to heart failure and COPD. Sister 66 with dementia an ovarian cancer diagnosed in 2018. SOCIAL STATUS: Patient is with 4 children, 56, 55, 53, and 44. Five grandchildren and 3 great-grandchildren. The patient has been since 89. This will be at 59 years in 2020. She is a nonsmoker and nondrinker. Patient has a Living Will which states reasonable medical effort. PAST SURGERIES: Back surgery in 2006 secondary to herniated disk. Cataract surgery in 2015. Cholecystectomy in 2008. Pre-lap band surgery from Dr. Michelle. Hysterectomy without oophorectomy in 1981 for dysfunctional uterine bleeding. In 2008 Lap-Band procedure for morbid obesity, with significant perioperative complications eventually leading to gastroparesis and a prolonged need for feeding tube in excess of 5 months. Lap Band was subsequently removed in 2008. Botox injections into the bladder in 2013 and 2015 for overactive bladder. REVIEW OF SYSTEMS: A 12-point review of systems is unremarkable except that noted within the HPI. Her last physical was noted to be January 2019. New issues for 2019 are none. She is currently followed for at least 32 problems. C-spine on in June 2018 showed multi-level degenerative disk and degenerative joint disease with no evidence of spinal stenosis or herniated disk. New onset of tremor is noted over the past 2 to 3 months. Patient is convinced that this is related primarily to initiation of antiarrhythmic as well as anticoagulant for atrial flutter. PHYSICAL EXAMINATION: VITAL SIGNS: Vitals on admission, as per chart. HEENT: Normocephalic atraumatic. Patient is currently fitted with BiPAP machine and difficult to understand. NECK: Is soft and supple without lymphadenopathies or bruits. CARDIOVASCULAR: With a bradycardic rate. There are no murmurs, gallops, or rubs. These might be precluded secondary to sound of ventilatory device. LUNGS: Appeared to be clear without wheezes, rhonchi, or rales. ABDOMEN: Soft and obese. EXTREMITIES: Without pitting edema. NEUROLOGICAL: Cranial nerves 2-12 appear to be grossly intact. Patient is communicative, but again, difficult understand secondary to presence of BiPAP mask. LABORATORY: Sodium 131, potassium 4.6, chloride 88, bicarb at 30. BUN and creatinine at 13 and 1.1 with GFR at 48. Glucose at 123. Magnesium slightly elevated at 3.0. Alkaline phosphatase at 112, proBNP at 1011. Total protein is 7.5, albumin at 3.2. Globulin at 4.3. Urine is pending at the time of dictation. ABG: PH at 7.28, bicarb at 85, PO2 at 293, bicarb at 32.9, base excess at 10.2, BiPAP settings at 20 and 8; 20 inspiratory and 8 expiatory. PT/INR at 15.9 and 1.25. CBC: White blood cell count 5.99 H H 11.7 and 38.5, with platelets at 144,000. IMPRESSION: 1. A 79-year-old, with acute respiratory failure secondary to hypercapnia likely supplemental oxygen driven/mediated. The patient has historically been counseled on the fact that over supplementation of oxygen might result in potentially toxic retention of CO2 and result in altered mental status, increased lethargy and symptoms which are similar to those for which she presented with. 2. Tremor is of uncertain clinical significance and etiology. She does have advanced degenerative joint and degenerative disk disease of the neck dating back nearly 2 years, but with her dropping things now, the concern is whether this is cervical spine mediated or neurologic/muscular in nature. We will be obtaining an MRI of the neck in the morning and possibly consulting with Neurology regarding involuntary dystonic movements. 3. Patient recently was seen and admitted for symptomatic atrial flutter. Electrocardiogram shows normal sinus rhythm, well manage rhythm with bradycardic rate likely due to antiarrhythmic on board as well as supplemental a beta blockade. I do not feel that any additional cardiac input would be indicated at this time, but I certainly feel that word from the water team leader regarding use/misuse/abuse of supplemental oxygen would be prudent. PLAN: She will be admitted for overnight observation and ongoing/further medical management. The patient and family understand the course of treatment and plan. No further issues at this time. Note is dictated in the emergency room at the time of admission. Total time spent at the bedside and in dictation, coordinating care and admission approximately 90 minutes. cc: Hammad Amador DO
[2019-11-01 08:31] LABS: ALB/GLOB RATIO 0.8; CALCIUM 8.4 mg/dL (8.8-10.2); POTASSIUM 4.7 mmol/L (3.5-5.1); TOTAL BILIRUBIN 0.16 mg/dL (0.20-1.00); TOTAL PROTEIN 6.6 g/dL (6.3-8.3)
[2019-11-01 08:36] LABS: FREE T4 1.07 ng/dL (0.93-1.70); TSH 3.47 uIUmL (0.27-4.20)
--- NOTE | 2019-11-01 08:38 | PROGRESS NOTE ---
DATE: 11/01/2019 Hospital day #2. INDICATION FOR PROLONGED HOSPITALIZATION: Ongoing medical management and evaluation of acute respiratory failure, hypercapnic type, new-onset tremor, suspect for medicine side effect/toxicity versus other, and recent history of atrial fibrillation/atrial flutter with DC cardioversion, patient having been recently hospitalized 10/08/2019 for symptomatic atrial flutter. Overnight, the patient has remained clinically stable. She is continued on the BiPAP. There has been some confusion with regards to ER record and floor record. These will be merged later this morning. The patient complains of being thirsty and is provided a glass of ice water, as well as advancing diet to regular diet. The patient currently has a Yanez in. Documentation of I's and O's demonstrates -2.55 L out. PHYSICAL EXAMINATION: Vital Signs: Per alternate chart, blood pressure this morning 119/50, with heart rate at 52, the patient is afebrile at 98.5, weighing 260 pounds. Blood gas as followup from last night's two ABGs is pending at the time of dictation. HEENT: Normocephalic, atraumatic. Cardiovascular: Regular rate and rhythm without murmurs, gallops, or rubs. Lungs: Clear. Abdomen: Soft. Normoactive bowel sounds. Extremities: Benign with the exception of an involuntary bilateral upper extremity tremor. Cranial nerves II through XII are not assessed at this time. IMAGING AND LABORATORY DATA: Pending from admission last night, including a urinalysis, a CBC with a CMP, T4, followup BMP, and TSH. Additional laboratory and/or studies pending for today, including an MRI of the cervical spine. IMPRESSION: A 79-year-old with acute respiratory failure, hypercapnic type, likely due to liberal use of supplemental oxygen. The patient has limited understanding of the mechanism of depression of central respiratory drive with excessive/supplemental oxygen in patients who have underlying lung disease, and I think this is the contributing cause. We will be seeking the opinion of Pulmonary in this regard. In the interim today, transition her off of bilevel positive airway pressure to 2 liters per nasal cannula. Additional issues as follows: 1. Cardiovascular. Patient with recent admission for symptomatic atrial flutter. She was direct- current cardioverted, and then placed on amiodarone as an antiarrhythmic, as well as Eliquis as an antithrombotic. Since being placed on the medication, there has been the development of tremor. Differential diagnosis of tremor, including essential parkinsonian, electrolyte abnormalities, medication side effects. She also has a history of taking Reglan, but states that she is not taking it on a regular basis. This may contribute to tardive dyskinesia. Nevertheless, the patient complains of dropping things secondary to tremor. We will be asking Cardiology to provide recommendations for alternate therapy in an effort to alleviate the tremor, which may be coming from the amiodarone. 2. Tremor, upper extremity weakness, and dropping things. 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 We will be proceeding with re-evaluation of the cervical spine with an MRI of the neck, and seeking the opinion of Neurology. It might, in fact, be as simple as amiodarone toxicity, but I have cautioned the family that development of other neurologic condition may not be unreasonable, and a Neurology opinion would be indicated. I am again reluctant to stop the amiodarone secondary to recent admission for symptomatic atrial flutter. 3. Pulmonary disease requiring supplemental oxygen to maintain oxygen saturation. The patient, over the past 3 to 6 months, with an increased interest in titrating oxygen from 2 liters per nasal cannula to 3 liters per nasal cannula, stating that she breathes better. We have had multiple conversations in the past with regards to central depression of respiratory drive and potential for hypercapnia. Her CO2 on ABG last night was 111, and her pH was 7.10, likely hypercarbia mediated. We will be seeking the opinion of Pulmonology for education and recommendations. PLAN AND DISPOSITION: Seek opinion from Neurology, seek opinion from Cardiology, seek opinion from Pulmonology, and proceed with MRI of the cervical spine. Continue with supplemental oxygen at 2 L per nasal cannula. Continue to follow along with regards to cardiac status, and early discharge as soon as the patient is clinically stable. The family understands the course of treatment and plan. Note is dictated on the morning of rounds. cc: Hammad Amador DO
--- NOTE | 2019-11-01 10:37 | Diag Imaging Result Doc PS360 ---
EXAM: MRI CERVICAL SPINE W/O CON 11/01/2019 HISTORY: Upper extremity weakness with dropping things TECHNIQUE: T1-T2 and STIR sagittal, T1 and T2 axial COMMENT: There is some metallic artifact arising from the patient's dental work. There is no evidence of intrathecal or intramedullary mass or signal abnormality. There is no evidence of bone marrow edema. At the C2-3 level there is no spinal or foraminal stenosis. At C3-4 there is no spinal or foraminal stenosis. At C4-5 there is no evidence of spinal or foraminal stenosis. At C5-6 there is some disc bulge without evidence of spinal or foraminal stenosis. At C6-7 there is marked disc bulge with central protrusion of the nucleus. The right foramen is slightly narrowed. There is no evidence of spinal stenosis, however there is impingement on the cord by the herniated nucleus. At C7-T1 there is no evidence of spinal or foraminal stenosis. IMPRESSION: Herniated nucleus pulposis at C6-7. Electronically signed by Erwin Plaza 11/01/2019 10:34 AM
[2019-11-01 11:11] LABS: URINE SOURCE CATH
[2019-11-01 11:15] LABS: BILIRUBIN URINE NEGATIVE (NEGATIVE); BLOOD URINE MODERATE (NEGATIVE); COLOR YELLOW; GLUCOSE URINE NEGATIVE (NEGATIVE); KETONE URINE NEGATIVE (NEGATIVE); LEUKOCYTES URINE SMALL (NEGATIVE); NITRITE URINE NEGATIVE (NEGATIVE); PROTEIN URINE 30 mg/dL (NEGATIVE); SP GRAVITY URINE 1.015; TURBIDITY URINE CLEAR (CLEAR); UR EPITHELIAL CELLS <10 /HPF (<10); URINE BACTERIA NEGATIVE /HPF; URINE RBC TNTC /HPF (<10); URINE WBC <10 /HPF (<10); UROBILINOGEN URINE NORMAL (NORMAL)
[2019-11-01] MEDS ORDERED: COREG PO SCH (11:15)
--- NOTE | 2019-11-01 12:08 | EKG Report ---
Test Performed on : 11/01/2019 11:59:07 AM Test Reason : bradycardia Blood Pressure : / mmHG Vent. Rate : 058 BPM Atrial Rate : 058 BPM P-R Int : 188 ms QRS Dur : 110 ms QT Int : 438 ms P-R-T Axes : 041 -34 032 degrees QTc Int : 429 ms Sinus bradycardia. Left axis deviation Abnormal ECG When compared with ECG of 31-OCT-2019 19:36, (Unconfirmed) No significant change was found Unconfirmed Result
[2019-11-01] MEDS: LASIX PO SCH ×2 (12:42→22:08)
[2019-11-01] MEDS: ZOLOFT PO SCH (12:42)
[2019-11-01] MEDS: ELIQUIS PO SCH ×2 (12:43→22:10)
[2019-11-01] MEDS: LYRICA PO SCH ×2 (12:43→22:09)
[2019-11-01] MEDS: PRILOSEC PO SCH (12:43)
[2019-11-01] MEDS: NS 1,000 ML IV SCH (12:43)
[2019-11-01 18:37] LABS: ALLEN TEST NO; BE 14.1 mmoll (-3.0-3.0); BLOOD TYPE ARTERIAL; HCO3-(ACT) 35.9 mmoll (20.0-26.0); METHB 1.5 % (0.0-1.5); O2(CT) 14.8 mL/dL (15.0-23.0); O2HB 94.8 % (95.0-99.0); PO2(98.6) 83 mmHg (60-100); SAMPLE BLOOD; SAO2 97.9 % (95.0-100.0); pH(98.6) 7.32 (7.35-7.45)
[2019-11-01 18:38] LABS: MODALITY CANNULA; PCO2(98.6) 84 mmHg (35-45)
[2019-11-01] MEDS: TYLENOL PO PRN (19:11)
[2019-11-01] MEDS ORDERED: CORDARONE PO SCH (21:00)
--- NOTE | 2019-11-01 21:40 | Diag Imaging Result Doc PS360 ---
EXAM: CT THORAX W/O CONTRAST 11/01/2019 HISTORY: nodular infiltrates TECHNIQUE: This exam was performed using automated exposure control, adjustment of mA or kV according to patient size, and/or use of iterative reconstruction technique. COMMENT: The current study is compared with the previous examination of 09/03/2018. There is some honeycombing in the costophrenic sulci regions of the lower lobes. This was also present at the time the previous study. There are some platelike opacities present in the right lower lobe and left upper lobe. These were present previously and are also likely due to fibrosis. There are no acute bony abnormalities. There has been cholecystectomy. IMPRESSION: Pulmonary fibrosis. No evidence of acute disease. Electronically signed by Erwin Plaza 11/01/2019 9:37 PM
[2019-11-01] MEDS: MIRAPEX PO SCH (22:08)
[2019-11-01] MEDS: PRAVACHOL PO SCH (22:08)
[2019-11-01] MEDS: ARICEPT PO SCH (22:08)
[2019-11-01] MEDS: COREG PO SCH (22:09)
[2019-11-01] MEDS: CORDARONE PO SCH (22:09)
[2019-11-01] MEDS: ASPIRIN PO SCH (22:09)
--- NOTE | 2019-11-01 23:18 | PULMONOLOGY CONSULTATION ---
DATE: 11/01/2019 REQUESTING PHYSICIAN: Dr. Hammad Amador. REASON FOR CONSULTATION: Hypercapnia. HISTORY OF PRESENT ILLNESS: Ms. Saenz is a 79-year-old female with a BMI greater than 46, diastolic dysfunction, diabetes mellitus, obstructive sleep apnea and dementia, who has been followed in my clinic. The patient was admitted to the hospital for 2 days in early September with symptomatic atrial flutter. She received amiodarone therapy and subsequently underwent cardioversion. She continues to be short of breath. The patient reports she went to Dr. Mao and received IVIG, and then developed increased shortness of breath. She presented to the emergency room. An arterial blood gas revealed njzya-ei-[id number] hypoxemic and hypercapnic respiratory failure. She has been initiated on BiPAP. PAST MEDICAL HISTORY: 1. Presumptive immunoglobulin deficiency, on immunoglobulin replacement. 2. Morbid obesity with a BMI greater than 46. 3. Obstructive sleep apnea. 4. Hypertension. 5. Coronary artery disease. 6. Diastolic dysfunction. 7. Diabetes mellitus. 8. Gastroparesis. 9. Dementia. SOCIAL HISTORY: The patient is a nonsmoker and a nondrinker. She is and has several children. FAMILY HISTORY: Positive for kidney disease, Alzheimer disease, colon cancer, heart failure and dementia. REVIEW OF SYSTEMS: Notable for increased fatigue, increased shortness of breath, with recent increase in oxygen from 2 to 3 L. New-onset tremor. PHYSICAL EXAMINATION: Physical exam reveals an obese white female, resting comfortably and in no distress. Blood pressure 118/52, heart rate 55, respiratory rate 16, oxygen saturation 97% on nasal cannula. HEENT: Pupils are equal and reactive. Oropharynx appears clear. Neck is supple. Chest reveals occasional crackles in the lung bases. Cardiac exam: S1, S2. Abdomen is obese and soft. Extremities reveal +1 edema. LABORATORY DATA: Sodium 133, potassium 4.7, chloride 89, bicarbonate 35, BUN 13, creatinine 1.0. White blood count 4.71, hemoglobin 10.2, platelet count 150,000. Arterial blood gas on admission: PH 7.19, pCO2 of 111, pO2 of 134. Arterial blood gas on 2 L: PH 7.32, pCO2 of 84, pO2 of 83. IMPRESSION: A 79-year-old with: 1. Zyruf-ff-uwjahho hypoxemic respiratory failure. 2. Ngmkc-ik-adxgwka hypercapnic respiratory failure. 3. Morbid obesity. 4. Obstructive sleep apnea. 5. Recent onset of worsening dyspnea. 6. Recent initiation of amiodarone. 7. Multiple nodular infiltrates on recent CT scan. DISCUSSION: A 79-year-old with problems outlined above. The patient has had worsening shortness of breath with increased oxygen requirements. This occurred following immunoglobulin replacement. This could represent a reaction to the immunoglobulin, or she could have an underlying infection. The patient also is on amiodarone, and this will also be in the differential for now. RECOMMENDATIONS: 1. Continue oxygen for hypoxemic respiratory failure. 2. Continue BiPAP at bedtime and p.r.n. sleeping. 3. Caution the patient about excess sodium and water intake. She was receiving Aldactone with good diuresis, but she has been drinking a lot of water and is more hyponatremic. 4. Obtain CT scan of the thorax tomorrow to better evaluate the parenchyma. cc: MD Hammad Hubbard,
--- NOTE | 2019-11-02 04:19 | CONSULTATION ---
DATE OF CONSULTATION: 11/01/2019 REASON FOR CONSULT: Tremor. HISTORY OF PRESENT ILLNESS: This is a 79-year-old, right-handed, female with multiple medical problems, including morbid obesity and chronic respiratory conditions, heart failure, poorly controlled diabetes, chronic neck pain and spondylosis. Coronary disease. She was admitted yesterday with multiple complaints, the main 1 being respiratory distress. Her pCO2 was above 100. History is from the patient and attentive daughter at the bedside as well as other daughters via phone conversation at the bedside. History was not entirely clear, however. What I can gather, Ms Saenz began having tremor of her hands following her admission for atrial flutter, cardioversion and being started on amiodarone. It seems to involve both hands equally, it waxes and wanes in intensity but is mostly present. She has a tendency to drop things from her hands, she believes because of the jerking movement. The tremor seemed to peak but they have noticed recently that there has been obvious improvement. She has not had a past issue with tremor. The family also mentioned the patient has had long-standing issue with increased sleepiness. She has a tendency to fall asleep while holding her coffee for instance, and will drop it. That has worsened in recent days and weeks. At times they feel she may be a little bit confused and they further describe that only as when she is drifting to sleep sometimes she may begin to talk nonsensically. It does not necessarily happen at other times. The patient reports no changes to medications recently, with the exception of the amiodarone dose, which was initially at a higher dose following a procedure for several days and then that dose was lowered. She continues to take that lower dose. Also, she was on, I believe they said spironolactone, and that was discontinued. She reports many years of "severe" neck pain which has not changed recently. She uses a walker to get around. Her last fall was in February 2019, she reports falling because she has arthritic knees and her knee will give out and have pain, causing her to fall. This is her right knee. She has not had a change to her bowel or bladder habits. She denies numbness. MRI of the cervical spine performed today showed a herniated disk at C6-C7 with no evidence of spinal stenosis, but there was impingement of the cord in this area. There is not a cord signal abnormality. PAST MEDICAL HISTORY: Morbid obesity, chronic respiratory failure, heart failure, pulmonary hypertension, poorly controlled diabetes, degenerative cervical and lumbar disease, hypertension, hypothyroidism, coronary disease, bilateral knee osteoarthritis, restless legs, obstructive sleep apnea, GERD. PAST SURGICAL HISTORY: Previous back surgery in 2006. Cataract surgery 2016, she does not see well from her right eye. Lap-Band surgery with complications and eventual removal of the Lap- Band. She was admitted in September of last year with atrial flutter and had cardioversion. SOCIAL HISTORY: She is and lives with her . No tobacco alcohol or illicit's. She uses a walker. FAMILY HISTORY: Reviewed and noncontributory. ALLERGIES: Listed to sulfa. MEDICATIONS: Reviewed in the chart. REVIEW OF SYSTEMS: Balance of 12 conducted and otherwise negative, except that detailed in the HPI. PHYSICAL EXAMINATION: Vital Signs: Afebrile. Blood pressure 118/52, pulse 55. General: This is a morbidly obese female, supine in bed with head of bed elevated. She is eating dinner. Neurologic: She is awake alert and oriented. She follows simple commands and complex command given to her. Left-right digit distinction preserved. No language disturbance on brief bedside testing. The right pupil is slightly larger than the left and this is chronic, per their report. Both are reactive to bright light. Gaze is conjugate. Ocular movements full. Blinks to threat. Face symmetric with equal activation. Tongue is midline. Palate elevates symmetrically. Shoulder shrug is full. Tone appears equal in the limbs and appears to be normal. She has intermittent, fairly frequent fast jerking movements of the bilateral hands, most prominent with activity and with holding posture. With the arms outstretched and hands back there appears to be some asterixis. I also noted this movement to involve her lower extremities from time to time as well. She has good power in the limbs. Lower extremities were more difficult to assess but power appeared to be good there. There may have been mild hip flexor weakness bilaterally, but it could have also been related to body habitus. 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 Reflexes were trace at the biceps, absent at the wrists and ankles bilaterally as well as the knees. There was no clonus. Plantar response was silent. She had some inconsistent sensory responses to pin prick throughout. Actually, however, she did had reduced vibratory sense at the great toe bilaterally and she had trouble with proprioception in the area as well. I did not test her gait. DIAGNOSTICS: As per above. LABS: Reviewed in the chart. Her pCO2 was 111, now 84. ASSESSMENT AND PLAN: A 78-year-old morbidly obese female with multiple comorbidities presenting with: 1. Respiratory failure, hypercapnic. 2. Relatively new onset abnormal movements involving the bilateral hands. Actually looks as though it also involves the lower extremities as well but to a lesser extent. This appears to be most consistent with a toxic or metabolic disturbance. Amiodarone toxicity is a possibility and the half-life is long. I do not believe this finding is related to the findings seen on the cervical MRI. 3. Long-standing cervical spine disease with recent imaging findings of a herniated disk at C6- C7. I am not certain how much of all of her symptom constellation, if any, could be related to this. On exam, she had some mild right hand weakness compared to the left and some difficulty with hip flexion bilaterally, which may have been on the basis of weakness versus knee discomfort versus body habitus. She does not report increased neck pain from baseline, changes to her bowel or bladder habit, etc. She has had a fall in the past and has had some gait difficulties that she has attributed to arthritic knee pain and buckling. She will need follow-up of this. She might benefit from a short course of steroids to see if any of her symptoms would be improved. She might ultimately need neurosurgical consultation. Thank you for this consultation. cc: MD Hammad Contreras,
[2019-11-02] MEDS: PRILOSEC PO SCH (06:46)
[2019-11-02] MEDS: NS 1,000 ML IV SCH ×2 (06:53→17:19)
[2019-11-02 08:32] LABS: ESTIMATED GFR 43
[2019-11-02] MEDS: COREG PO SCH (08:32)
[2019-11-02] MEDS: ELIQUIS PO SCH ×2 (08:32→21:01)
[2019-11-02] MEDS: LASIX PO SCH ×2 (08:33→21:01)
[2019-11-02] MEDS: ZOLOFT PO SCH (08:33)
[2019-11-02] MEDS: LYRICA PO SCH ×2 (08:33→21:01)
[2019-11-02] MEDS: BREO ELLIPTA 100/25 MCG INH INH SCH (08:42)
[2019-11-02 09:07] LABS: AGAP 10; ALB/GLOB RATIO 0.9; ALKALINE PHOSPHATASE 99 U/L (32-104); BUN 16 mg/dL (8-22); CHLORIDE 88 mmol/L (98-107); COSMO 266; CREATININE 1.2 mg/dL (0.5-0.9); GLUCOSE 103 mg/dL (70-104); GOT 11 U/L (10-30); GPT 12 U/L (10-36); PHOSPHORUS 3.9 mg/dL (2.7-4.5); POTASSIUM 4.1 mmol/L (3.5-5.1); SODIUM 132 mmol/L (136-145); TCO2 34 mmol/L (25-35); TOTAL BILIRUBIN < 0.15 mg/dL (0.20-1.00); TOTAL PROTEIN 6.5 g/dL (6.3-8.3)
--- NOTE | 2019-11-02 09:38 | PROGRESS NOTE ---
DATE: 11/02/2019 INDICATION FOR PROLONGED HOSPITALIZATION: Ongoing medical management for acute hypercapnic respiratory failure as well as acute hypoxic respiratory failure. This within the context of advanced end-stage lung disease and pulmonary fibrosis. Follow up on ABG demonstrating interval improvement in acid base status. Ph falling from 7.19 to 7.32. Patient continues with hypercapnia although down from 111 to 84. She continues on a combination of BiPAP at 60% with an inspiratory/expiratory setting of 20 and 8. Over the past 24 hours she is seeing neurology, cardiology and pulmonology. Pulmonary and neurology notes have been reviewed at the bedside with the patient. Cardiology note assessment and recommendations are pending at the time of this dictation. Vitals this morning, blood pressure 131/63, heart rate at 53 temperature at 97.9 degrees with T-max at 98.3 degrees. Laboratory is pending for this morning. An outstanding urinary culture is pending as well. Last night, amiodarone was restarted secondary to error in the emergency room on my part. She has been started back on and 200 mg once daily. On admission she was on [address] scan is reviewed and demonstrates no significant interval change when compared to August 2018. I very much appreciate the opinion of pulmonology and neurology in this complex case. PHYSICAL EXAMINATION: HEENT: Unremarkable. Cardiovascular: Regular rate and rhythm with a bradycardic rate. Lungs: Without wheezes, rhonchi or rales. Abdomen: Obese with normoactive bowel sounds. Extremities: Benign. Neurological: Cranial nerves 2-12 are not assessed. IMPRESSION: A 79-year-old, with combination of chronic hypercapnic respiratory failure and chronic hypoxic respiratory failure this within the setting of COPD/pulmonary fibrosis and recent history of a-flutter requiring DC cardioversion and initiation of antiarrhythmic to maintain rhythm. With the assistance of BiPAP CO2 has improved with near normalization of pH. Patient subjectively is intervally improved. There have been no new recommendations pro neurology and/or pulmonary at this point. The final opinion on ongoing use of amiodarone with concern that this might be contributing to nonspecific bilateral upper extremity tremors is pending. I will try to contact cardiology today for a formal opinion and/or await dictated note for review. Provided that the urine is not infected and she remains clinically stable for today it is my opinion that she might be eligible for discharge later this evening. I will return this evening of rounds and chart review. The daughter and patient understand the course of treatment and plan. No further issues at this time. Note is dictated on the morning of rounds. cc: Hammad Amador,
[2019-11-02 10:00] LABS: ALLEN TEST NO; BE 9.4 mmoll (-3.0-3.0); BLOOD TYPE ARTERIAL; HCO3-(ACT) 32.2 mmoll (20.0-26.0); METHB 1.4 % (0.0-1.5); MODALITY CANNULA; O2(CT) 14.7 mL/dL (15.0-23.0); O2HB 94.5 % (95.0-99.0); PO2(98.6) 82 mmHg (60-100); SAMPLE BLOOD; SAO2 97.5 % (95.0-100.0); pH(98.6) 7.29 (7.35-7.45)
[2019-11-02 10:01] LABS: PCO2(98.6) 80 mmHg (35-45)
[2019-11-02] MEDS ORDERED: LASIX IV ONE (11:00)
--- NOTE | 2019-11-02 15:16 | PROGRESS NOTE ---
DATE: 11/02/2019 SUBJECTIVE: Dr. Ibanez saw Ms. Saenz for initial Neurology evaluation. She has had some involuntary movement. OBJECTIVE: On my exam today, the movement in the hands was initially minimal. Later during the interview, there was more prominent movement and features were typical of asterixis affecting right and left wrist equally. I did not see tremor or other classifiable movement disorder. Specifically, I did not see myoclonus. She has been taking amiodarone long-term. I do not see anything else on her medicine list that likely would contribute to abnormal movement. She has a few fairly minor metabolic findings on lab work, but no definite evidence of liver failure or renal failure to correlate with asterixis. PLAN: I do not have any urgent suggestion from Neurology standpoint. If she can be managed with lower dose amiodarone, we could follow this movement clinically. If movement persists, we might consider further neuromuscular workup electively. Thanks for asking Neurology to see Ms. Saenz. cc: MD Hammad Simon III, DO [facility]AN[facility]
[2019-11-02] MEDS: ARICEPT PO SCH (21:00)
[2019-11-02] MEDS: MIRAPEX PO SCH (21:01)
[2019-11-02] MEDS: PRAVACHOL PO SCH (21:01)
[2019-11-02] MEDS: CORDARONE PO SCH (21:01)
[2019-11-02] MEDS: TYLENOL PO PRN (21:01)
[2019-11-02] MEDS: ASPIRIN PO SCH (21:01)
[2019-11-02] MEDS: ZOFRAN IV PRN (21:02)
[2019-11-03 05:18] LABS: ALLEN TEST YES; BE 14.5 mmoll (-3.0-3.0); BLOOD TYPE ARTERIAL; HCO3-(ACT) 36.2 mmoll (20.0-26.0); METHB 0.8 % (0.0-1.5); PO2(98.6) 173 mmHg (60-100); SAMPLE BLOOD; SAO2 99.7 % (95.0-100.0); THB 10.7 g/dL (11.5-17.4); pH(98.6) 7.43 (7.35-7.45)
[2019-11-03 05:29] LABS: MODALITY BI PAP; PCO2(98.6) 62 mmHg (35-45)
[2019-11-03] MEDS: PRILOSEC PO SCH (06:20)
[2019-11-03] MEDS: NS 1,000 ML IV SCH (06:20)
--- NOTE | 2019-11-03 06:48 | PULMONOLOGY PROGRESS NOTE ---
DATE: 11/02/2019 SUBJECTIVE: The patient is awake and alert. She denies taking any naps today so she did not wear her BiPAP. She reports she has had a pretty good day. OBJECTIVE: Vital Signs: The patient has been afebrile for the last 24 hours. Blood pressure 112/50, heart rate 70, respiratory rate 15, oxygen saturation 98% on 2 L per nasal cannula. HEENT: Pupils are equal and reactive. Oropharynx appears clear. Neck: Supple. Lungs: Chest reveals shallow breath sounds bilaterally without wheezing or rhonchi. Cardiac: S1, S2. Abdomen: Obese and soft. Extremities: Without edema. LABORATORIES: Arterial blood gas reveals a pH 7.29, pCO2 of 80, pO2 of 82 on 2 L per nasal cannula. Sodium 132, potassium 4.1, chloride 88, bicarbonate 34, BUN 16, and creatinine 1.2. ProBNP is 1095. CT scan of the thorax is reviewed. There is mild bibasilar fibrosis. This was also present on 09/03/2018, and has not progressed. She has no significant pulmonary infiltrates or evidence of pneumonitis. IMPRESSION: A 79-year-old with 1. Acute on chronic hypoxemic respiratory failure. 2. Acute on chronic hypercapnic respiratory failure. 3. Morbid obesity. 4. Obstructive sleep apnea. 5. Amiodarone use. 6. Multiple nodular infiltrates on admission chest x-ray. No evidence of infiltrates on CT scan. DISCUSSION: A 79-year-old with problems outlined above. With the infiltrates on chest x-ray on admission, but not seen on her CT scan of the thorax, I suspect that she had transient infiltrates which have resolved. This may have been a reaction to the immunoglobulin infusion. An underlying infection would not have resolved. There is no evidence of amiodarone pneumonitis. The patient's CO2 is elevated, but I suspect that this will be her baseline. I explained to the daughter that her CO2 is elevated because of her weight and she cannot ventilate more to bring the carbon dioxide into the normal range. RECOMMENDATIONS: 1. Continue oxygen. 2. Continue BiPAP at bedtime and p.r.n. 3. Caution about excessive fluid intake. 4. I agree with Dr. Amador. I believe she is reaching maximum hospital benefit. Her CO2 will be a chronic issue. The family was made aware that any sedatives or narcotics would put her at risk for increased CO2 level. cc: MD Hammad Hubbard, DO
[2019-11-03] MEDS: BREO ELLIPTA 100/25 MCG INH INH SCH (08:25)
[2019-11-03] MEDS: ZOLOFT PO SCH (09:30)
[2019-11-03] MEDS: LYRICA PO SCH (09:30)
[2019-11-03] MEDS: LASIX PO SCH (09:30)
[2019-11-03] MEDS: ELIQUIS PO SCH (09:31)
--- NOTE | 2019-11-03 09:41 | CARDIOLOGY CONSULTATION ---
DATE: 11/03/2019 Chief complaint on presentation was shortness of breath. HISTORY OF PRESENT ILLNESS: Ms. Saenz is a 79-year-old female who presented on the with the above-noted complaints. The patient continues to have and sounds like it has been going on for a few months of shortness of breath as well as some issues with ongoing nausea. She reports some issues with clumsiness. It does not seem like she clearly identifies it in a tremor type description but rather she notes that when she is trying to grab things or lift things or manipulate things with her hands she ends up dropping them. She is on home oxygen at home. She has minimal activity level at home. She is not having any exertional chest pain. PAST MEDICAL HISTORY: 1. Significant for IgG deficiency. 2. Morbid obesity. 3. Obstructive sleep apnea. 4. Hypertension. 5. Atrial fibrillation. 6. Coronary artery disease. 7. Diabetes. SOCIAL HISTORY: Nonsmoker. She does not drink any alcohol. FAMILY HISTORY: Significant for kidney disease as well as Alzheimer's. History of heart failure as well. REVIEW OF SYSTEMS: A 10 system review of systems is negative except for those things mentioned in HPI. PHYSICAL EXAMINATION: She has been afebrile. Heart rate is in the 60s, blood pressure 128/58. Her I's and O's thus far have been negative on the order of 5.9 L.Generally: She is in no acute distress. HEENT: Oropharynx is moist. She has poor dentition. Her eye examination is pink conjunctivae. White sclerae. Neck: Examination shows no obvious thyromegaly or thyroid tenderness. Cardiovascular: She sounds to be in a regular rate and rhythm. She has no obvious murmurs. She has no S3. She has minimal lower extremity edema. Chest exam: Has minimal crackles in the bilateral bases. No increased work of breathing. Abdomen: Soft, nontender, nondistended. She has no obvious organomegaly. Skin: Warm and dry throughout without any rashes. PERTINENT DATA: She had a transesophageal echocardiogram performed in September 2019 showing a preserved ejection fraction of 60%. She had a chest CT showing pulmonary fibrosis. Her electrocardiogram on the demonstrated sinus mechanism. Her laboratory data shows a white count of 4.7, hematocrit 35. She has a ABG of 7.43, pCO2 of 62. Her sodium yesterday was 132, potassium 4.1, BUN 16, creatinine is 1.2. Her proBNP has been relatively flat. On admission it was 1011. currently 1095. ASSESSMENT: Ms. Saenz is a 79-year-old female who presents with a myriad of complaints including shortness of breath, generalized weakness, and what sounds like possible tremor. PLAN: She was on an elevated dose of amiodarone and I agree with dropping to 200 mg daily. That could be accounting for some of the tremor. She has an appointment later on this month with Dr. Kohli as well as an appointment in the near future with the electrophysiology service. I would allow her to maintain the lower dose of amiodarone until that time when they can reassess and see if she has any improvement. Otherwise they could make considerations for possible discontinuation of antiarrhythmics or trial of an alternative. She diuresed significantly. I agree with the plan as it is. I have no reservations to her being discharged today. Please contact us if we can be of further assistance. cc: MD Hammad Mendieta, DO
--- NOTE | 2019-11-03 11:10 | PROGRESS NOTE ---
DATE: 11/03/2019 Ms. Cordero is awake, alert, attentive, bright, cheerful. She continues to have abnormal movement most consistent with asterixis. On my limited time at the bedside today, the asterixis is a little bit less prominent than yesterday. In addition, there was an occasional muscle twitch proximally in the arms consistent with myoclonus which I did not recognize yesterday. Cardiology evaluation is noted. If her movement persists with lower amiodarone dose, I will be glad to see her for further neurology evaluation inpatient or outpatient. Thanks for asking us to see her here. cc: MD Hammad Simon III, MTDD
[2019-11-03 12:33] VITALS: BP 131/96
[2019-11-03] MEDS: ZOFRAN IV PRN (13:33)
[2019-11-04] MEDS ORDERED: ALDACTONE PO SCH (09:00)
--- NOTE | 2019-11-20 20:55 | DISCHARGE SUMMARY ---
ADMISSION DATE: 10/31/2019 DISCHARGE DATE: 11/03/2019 DISCHARGE DIAGNOSES: 1. Acute respiratory failure with components of hypoxia and hypercapnia. 2. Tremor of unknown origin. 3. Hand paresthesia. 4. Right arm paresthesia. 5. Cervical radiculopathy involving dermatome and nerve root C6. 6. Possible adverse drug reaction, when used therapeutically. 7. History of atrial fibrillation/atrial flutter. 8. Morbid obesity. 9. Pulmonary hypertension. 10. History of IgG deficiency. MEDICATIONS AT THE TIME OF DISCHARGE: Citrulline 200 mg p.o. at bedtime, Pravachol 40 mg p.o. at bedtime, Mirapex 0.5 mg at bedtime, aspirin 81 mg once daily. Breo 100/25, 1 puff daily, Prilosec 20 mg once daily. Phenergan 25 mg q.8 p.r.n., lactulose 30 mL p.o. daily p.r.n., milk of magnesia 30 mL p.o. p.r.n., Lasix 40 mg twice daily, Aricept 10 mg once daily, Eliquis 5 mg twice daily, levothyroxine 150 mcg once daily, Tylenol [id number] as directed, gabapentin 150 mg twice daily, amiodarone 200 mg once daily. MEDICATIONS STOPPED OR CHANGED.: Stopping Coreg 6.25 mg b.i.d. Changing amiodarone from 400 mg twice daily to 200 mg once daily. CONSULTATIONS DURING ADMISSION: Pulmonology, neurology and cardiology. PROCEDURES DURING ADMISSION: MRI of the cervical spine. On 11/01/2019 demonstrating a herniated disk at C6-C7. Right foramen is slightly narrowed. No evidence of spinal stenosis. There is impingement on the cord by the herniated nucleus. CT scan of the chest on 11/01/2019 for nodular infiltrates. Pulmonary fibrosis is demonstrated when compared to previous exam dated 09/03/2018. No acute abnormalities are noted. Cardiac echo dated 11/02/2019, ejection fraction estimated at 55% to 60% with no wall motion abnormality. Pulmonary pressures are reported as normal, but a difficult study is noted. Diastolic dysfunction is suggested, and there is no evidence of pericardial effusion and no sign of thrombosis. HOSPITAL COURSE: Patient was admitted through the emergency room on the evening of the following an acute respiratory distress, presumed to be multifactorial including underlying pulmonary dysfunction, accelerated supplemental oxygen usage and possible adverse reaction to infused IVIG. She was noted to be hypercapnic with pCO2 at 111 and a pH at 7.19. She was admitted for overnight observation and a pulmonary consultation. Additional issues at the time of admission including tremor of undetermined clinical significance in the setting of degenerative joint and degenerative disk disease, but she had reported issues of dropping things and a radiculopathy limited to the right upper arm. Therefore, an MRI of the neck was obtained demonstrating findings as noted above. With a history of atrial fibrillation in atrial flutter, EKG was noted to be normal with sinus rhythm at a bradycardic rate. She was both on an antiarrhythmic as well as beta blockade. Supplemental and follow-up gases continued to improve with discharge ABG; 7.43 pH, pCO2 at 62, PO2 at 173, saturating 99%. Opinion of neurology was sought for upper extremity tremor. No additional recommendations were made. We did discuss the possibility of having Neurosurgery evaluate the patient as an outpatient for herniated disk at C6-C7. Pulmonology was also consulted with regards to shortness of breath and Cardiology was consulted with regards to shortness of breath, consideration of atrial fibrillation/atrial flutter history. Cardiology's recommendation; in agreement with dropping to 200 mg once a day of amiodarone. It was felt that the tremor might be amiodarone mediated. During her hospitalization she was able to diurese approximately 5.9 L. DISPOSITION: The patient is discharged to home with modification of medications and likely ongoing followup as an outpatient with Cardiology and possible referral to Neurosurgery for cervical disks issues. The patient understands the course of treatment and plan. No further issues at this time. cc: Hammad Amador DO
== END 2019-11-03 15:11 | disposition home health service (06) | DRG 917 ==
LOC: SUPCPDRO → ED 12:51 → 3N 20:49 → DIRADM 11-01 07:17 → 3N 11-01 12:33
PROVIDERS: ADMIT Internal Medicine; ATTEND Internal Medicine

== ENCOUNTER 2020-01-16 15:15 | Inpatient (IN) ==
[2020-01-16] MEDS ORDERED: SALINE LOCK IV FLUID XX ONE (16:20)
[2020-01-16] MEDS ORDERED: LACTULOSE PO PRN (18:39)
[2020-01-16] MEDS ORDERED: MILK OF MAGNESIA PO PRN (18:40)
[2020-01-16] MEDS ORDERED: SYNTHROID PO ONE (18:44)
--- NOTE | 2020-01-16 19:07 | Diag Imaging Result Doc PS360 ---
EXAM: FOOT COMPLETE RIGHT HISTORY: Osteomyelitis of the rigfht toe/foot TECHNIQUE: Three views COMPARISON: 05/17/2015 FINDINGS: No fracture. No dislocation. Joint space narrowing and lateral subluxation to the first metatarsal phalangeal joint. Small partial bone spurs. No bone erosions. IMPRESSION: Arthritis. No plain film evidence of osteomyelitis. An MRI is recommended. Electronically signed by Jr Santoro 01/16/2020 7:05 PM
--- NOTE | 2020-01-16 19:31 | HISTORY AND PHYSICAL ---
INDICATION FOR ADMISSION: Infected toe of the right foot. HISTORY OF PRESENT ILLNESS: Ms. Saenz is a pleasant, 79-year-old female patient of mine with multiple medical problems, including marked anatomical abnormalities of the bilateral feet with hammertoe, bunions, and extensive keratosis. She also carries a diagnosis of generalized abdominal pain, cervical neck pain, overactive bladder, chronic constipation, abdominal hernia, alpha 1 antitrypsin deficiency, atherosclerotic coronary artery disease, chronic respiratory failure with hypoxia, oxygen-dependent, chronic venous insufficiency, depression, dysphagia, hypertension, hypothyroidism, memory loss, obesity secondary to excessive calorie intake, thyroid nodularity, spondylosis with nerve root impingement, resulting in right cervical radiculopathy involving the C-spine, paroxysmal atrial fibrillation, pulmonary hypertension, restless leg syndrome, spondylolisthesis of the lumbosacral region, and diabetes with renal involvement. She also carries a diagnosis of vitamin D deficiency. She reports that 7 days ago, she started to have discomfort while wearing her shoes. She took off her shoe wear and was noted on the toe to have a very red and irritated area of the dorsal aspect of the toe. She said that it was not infected at that time. However, on Thursday, the toe became more swollen and erythematous. She was seen by the orthopedic doctor on , recommending IV antibiotics plus or minus PICC plus or minus possibility for surgical intervention. The patient, over the weekend, continued with the oral antibiotic without fever and tried to reach the orthopedic surgeon today without success. The orthopedic office directed the patient to the ER to be admitted to the hospitalist service with orthopedic consultation. The patient is a private/manager employee relations patient of myself. She will not be admitted to the hospitalist service. I will take over the medical management of this patient and will seek surgical consultation for this potential surgical problem. Orthopedics has been consulted as well as Infectious Disease. MEDICATIONS ON ADMISSION: Include the followin. Zoloft 200 mg once daily. 2. CoQ10 100 mg once daily. 3. Breo 100/25 one puff once daily. 4. Vitamin B12 1000 mcg once daily. 5. Lactulose 30 mL twice daily, of a 10 g/15 mL concentration. 6. Milk of magnesia 30 mL every other day p.r.n. 7. Aricept 10 mg p.o. daily. 8. Mirapex 1 mg p.o. at bedtime. 9. Pravastatin 40 mg p.o. daily. 10. Prilosec 20 mg [id number] once daily. 11. Lasix 40 mg once daily. 12. Levothyroxine 125 mg once daily. 13. Eliquis 5 mg b.i.d. 14. Lyrica 150 mg b.i.d. 15. Sotalol 40 mg b.i.d. 16. Vitamin C 500 mg once daily. 17. Vitamin D 1000 international units once daily. ALLERGIES: Sulfa and Amitiza. FAMILY HISTORY: Father secondary to colon cancer, 83 years old. Mother at 82 secondary to complications of dementia and renal failure. Sister, 76 years old, with colon cancer diagnosis in 2016. Sister at 73 unremarkable. Sister at 71 from heart failure, COPD and lymphoma. Sister at 69, cause of heart failure, COPD and renal failure. Sister 66 with dementia and ovarian cancer diagnosed in 2018. SOCIAL HISTORY: The patient is with 4 children, 56, 55, 53, and 44, 8 grandchildren, 5 grandchildren and 3 great-grandchildren, patient having been for 59 years in 2019. The patient is primary [id number] mom. Worked for a limited time as a shoe maker. The patient is a nonsmoker and nondrinker. She has no significant travel history. PAST SURGERIES: Back surgery in 2006, herniated disk, cataract surgery in 2015 on the left, cholecystectomy in 2008 pre lap band surgery, hysterectomy without oophorectomy in 1981 for dysfunctional uterine bleeding, lap band procedure in 2008 with multiple complications, resulting in postoperative gastroparesis. Lap band was removed in 2008. Botox injections in 2013 and 2015. Patient has recently been hospitalized for tremor secondary to amiodarone, patient having been started on sotalol with recent admission to the cardiovascular service in [place]. She was discharged on 12/15/2019. She states that she is feeling better and the tremor has resolved after being off the amiodarone. She is also under the consultative opinion of Dr. Carballo, electrophysiology specialist, Hematology/Oncology for low iron, and ongoing issues with right lower extremity weakness. She continues to be followed by Orthopedics in this regard and has advanced right-sided degenerative knee disease. REVIEW OF SYSTEMS: Unremarkable. The patient again was last seen in the Internal Medicine Clinic in early December for post hospital followup after the initiation of sotalol. She was released at that time for interval followup in 6 weeks after having been to Orthopedics for ongoing knee followup, as well as dietary worker in [place]. However, in the interim, she has fallen ill with the issue regarding her right toe, which now appears to be infected. PHYSICAL EXAMINATION: VITAL SIGNS: Pending at the time of admission. Admission weight at 259 pounds and 11 ounces. HEENT: Normocephalic, atraumatic. Pupils are unremarkable. NECK: Obese. CARDIOVASCULAR: Irregularly irregular rhythm. LUNGS: Clear. ABDOMEN: Unremarkable. EXTREMITIES: Erythematous the toe with tenderness to touch. Hammertoe deformity with ulcerative lesion on the dorsal aspect with surrounding erythema. There is marked swelling of the dorsal foot extending into the distal right lower extremity, with 1+ pitting edema and tenderness to palpation. NEUROLOGICAL: Cranial nerves 2 through 12 appear to be grossly normal. Patient is alert and oriented x3 without any cognitive deficiencies. LABORATORY ORDERED ON ADMISSION: Including blood cultures, CBC, CMP, pro-time with INR, and urinalysis with reflexive culture. Right foot film is pending at the time of admission. The patient is started empirically on vancomycin and Zosyn with infectious disease consultation. IMPRESSION: A 79-year-old with anatomical abnormality and hammertoe deformity, now with resultant ulcerative lesion in this diabetic patient at risk for multiorganism and complicated foot infection, also at further risk for progression to the bone resulting in osteomyelitis. It is my nonsurgical opinion that the anatomy of the toe precludes to recurrent toe infections. We will be obtaining a plain film for review to rule out the presence of cortical disturbance suggestive of osteomyelitis. Further diagnostic imaging may be indicated, such as CT scan or MRI, tomorrow. Orthopedic Surgery is consulted for surgical opinion. Perhaps rather than a lengthy and protracted and probably unsuccessful course of intravenous antibiotics, surgical consideration for amputation might be a better option. I will defer to Orthopedics in this regard. The remainder of her medical problems at this point are clinically stable. We will follow up in the morning after we have had an opportunity to get some labs, blood cultures, start her on empiric antibiotic coverage, and obtain some x-rays for review. We have also consulted with Infectious Disease regarding any ongoing infectious disease management issues. The patient and the family understand the course of treatment and plan. No further issues at this time. Note is dictated on the evening of admission. cc: Hammad Amador, DO
[2020-01-16] MEDS: NS 1,000 ML IV SCH (19:34)
[2020-01-16] MEDS: ZOSYN 3.375 GM in NS 50 ML IV SCH (19:42)
[2020-01-16 20:44] LABS: URINE SOURCE CATH
[2020-01-16] MEDS: LYRICA PO SCH (20:45)
[2020-01-16 20:46] LABS: BILIRUBIN URINE NEGATIVE (NEGATIVE); BLOOD URINE NEGATIVE (NEGATIVE); COLOR YELLOW; GLUCOSE URINE NEGATIVE (NEGATIVE); KETONE URINE NEGATIVE (NEGATIVE); LEUKOCYTES URINE NEGATIVE (NEGATIVE); NITRITE URINE NEGATIVE (NEGATIVE); PROTEIN URINE TRACE mg/dL (NEGATIVE); SP GRAVITY URINE 1.017; TURBIDITY URINE CLEAR (CLEAR); UROBILINOGEN URINE NORMAL (NORMAL)
[2020-01-16] MEDS: MIRAPEX PO SCH (20:46)
[2020-01-16] MEDS: BETAPACE PO SCH (20:46)
[2020-01-16] MEDS: PRAVACHOL PO SCH (20:46)
[2020-01-16] MEDS: ELIQUIS PO SCH (20:46)
[2020-01-16 20:47] LABS: UR EPITHELIAL CELLS <10 /HPF (<10); URINE BACTERIA NEGATIVE /HPF; URINE RBC <10 /HPF (<10); URINE WBC <10 /HPF (<10)
[2020-01-16 21:31] LABS: BASO# 0.02 X1000 (0.0-0.2); BASO% 0.3 % (0.0-0.8); EOS# 0.06 X1000 (0.0-0.7); HEMATOCRIT 32.2 % (37.0-47.0); HEMOGLOBIN 10.2 g/dL (12.0-16.0); LYMPH# 1.27 X1000 (1.2-3.4); LYMPH% 22.1 % (20.5-51.1); MCH 31.9 PG (27-31); MCHC 31.7 g/dL (33-37); MCV 100.6 FL (81-99); MONO# 0.57 X1000 (0.11-0.59); MONO% 9.9 % (1.7-9.3); MPV 9.5 FL (7.4-10.4); NEUT# 3.82 X1000 (1.4-6.5); NEUT% 66.7 % (42.2-75.2); PLT 188 X1000 (130-400); RDW 16.7 % (11.5-14.5); WBC 5.74 X1000 (4.8-10.8)
[2020-01-16 21:34] LABS: INR 1.16
[2020-01-16 22:02] LABS: ALB/GLOB RATIO 0.7; ALBUMIN 2.8 g/dL (3.5-5.0); CREATININE 1.1 mg/dL (0.5-0.9); POTASSIUM 4.1 mmol/L (3.5-5.1); TOTAL BILIRUBIN 0.17 mg/dL (0.20-1.00); TOTAL PROTEIN 6.8 g/dL (6.3-8.3)
[2020-01-16] MEDS: VANCOMYCIN 1 GM/NS 1 GM/250 ML IVPB IV SCH (22:27)
[2020-01-17] MEDS: ZOSYN 3.375 GM in NS 50 ML IV SCH ×3 (02:19→16:04)
[2020-01-17] MEDS: PRILOSEC PO SCH (06:21)
--- NOTE | 2020-01-17 08:34 | ORTHOPAEDICS CONSULTATION ---
DATE: 01/17/2020 REASON FOR CONSULTATION: Infected right second toe. HISTORY OF PRESENT ILLNESS: Ms. Saenz is a 79-year-old female with a past medical history of coronary artery disease, chronic respiratory failure-on oxygen, depression, hypertension, paroxysmal atrial fibrillation, and type 2 diabetes who has been seeing Dr. Ovalles in the office for chronic diabetic ulcers. She was recently seen afternoon. At that time, she had a right second toe wound that did have erythema and swelling. She was encouraged to go to the hospital at that time to receive IV antibiotics. However, they wanted to avoid the hospital if possible so she was started on doxycycline orally. She was instructed to call with any worsening of symptoms. On Thursday, our nurse in the office got a call that things looked worse. She had worsening erythema and swelling up into the hindfoot and ankle at this point. She was told to go to the emergency room. On arrival to the emergency room, she was noted to have cellulitis of the right foot. She was started on IV antibiotics and orthopedics has been consulted for management of the right second toe wound. PAST MEDICAL HISTORY: 1. Chronic diabetic foot ulcers. 2. Type 2 diabetes mellitus. 3. Chronic respiratory failure. 4. Hypertension. 5. Depression. 6. Hypothyroidism. 7. Coronary artery disease. 8. Chronic constipation. HOME MEDICATIONS: Zoloft 200 mg p.o. daily, Co-Q-10 at 100 mg p.o. daily, Breo 100 mg/25 one puff once daily, vitamin B12 at 1000 mcg daily, lactulose 30 mg twice daily, milk of magnesia 30 mg every other day as needed for constipation, Aricept 10 mg p.o. daily, Mirapex 1 mg p.o. at bedtime, pravastatin 40 mg p.o. daily, Prilosec 20 mg once daily, Lasix 40 mg p.o. daily, Synthroid 125 mcg once daily, Eliquis 5 mg p.o. b.i.d., Lyrica 150 mg p.o. b.i.d., sotalol 40 mg p.o. b.i.d., vitamin C 500 mg once daily, vitamin D 1000 international units once daily. ALLERGIES: Sulfa and Amitiza. FAMILY HISTORY: Noncontributory. SOCIAL HISTORY: She does still live at home. She has 4 children. She denies tobacco, alcohol, or illicit drug use. PAST SURGICAL HISTORY: 1. Back surgery. 2. Hysterectomy. 3. Cholecystectomy. REVIEW OF SYSTEMS: A 10 point review of systems was completed and negative except what was mentioned above in the HPI. PHYSICAL EXAMINATION: Vital Signs: Her temperature is 97.4 degrees, pulse 60, respirations 18, blood pressure 105/60, 97% on room air. General: Ms. Saenz is a 79-year-old female in no acute distress. Neurological: She is alert and oriented x3 with no focal deficits. HEENT: Normocephalic, atraumatic. Pupils are equal, round, reactive to light. CV: Irregular rhythm, currently in atrial fibrillation, rate controlled. Pulmonary: Breathing is even and nonlabored. She is on a CPAP machine currently. Abdomen: Appears nondistended. Extremities: The right second toe is very swollen and she has erythema to it. There is an open wound that is draining. She does have a hammertoe deformity. She does have altered sensation to the foot but this toe is painful. She actually has erythema and swelling all the way to the hindfoot and ankle. The swelling on this side is much greater than the left side. LABORATORY DATA: Her white count is 5.74, hemoglobin and hematocrit 10.2 and 32.2, platelet count is 188,000. Her INR is 1.16. Her BUN is 27, her creatinine is 1.1. IMAGING: A right foot film reviewed and interpreted by Dr. Ovalles does show degenerative joint changes to the first MTP joint. No obvious bony erosions. ASSESSMENT: Right second toe diabetic ulcer with cellulitis. PLAN: The plan is to continue her IV antibiotic therapy. It looks like she is on Zosyn and vancomycin for empiric antibiotic therapy. We can give the IV antibiotics a chance to see if this can clear up the cellulitis. However, more than likely, there will be a need for a second toe amputation. We may get an MRI to further evaluate the extent of this infection. That will help in treatment guidance as well. We will plan on doing that today at some time. After Dr. Ovalles can review all the information, we will make a decision about amputation or continuing IV antibiotic therapy. Dictated by JOAQUIN Bennett for Neo Ovalles MD cc: JOAQUIN Bennett MD Jeffrey A. Johnson, DO MTDD
[2020-01-17] MEDS ORDERED: VITAMIN D PO SCH (09:00)
--- NOTE | 2020-01-17 09:54 | Diag Imaging Result Doc PS360 ---
MRI LOW EXTREMTY W/O CON-RIGHT - 01/17/2020 INDICATION: Diabetic foot normal plain film r/o osteomyelitis TECHNIQUE: MRI right foot. COMPARISON: X-rays from 01/16/2020 FINDINGS: There is significant dorsal pedal edema. There is hallux valgus with severe degeneration at the base of the great toe. There are severe hammertoe deformities. No suspicious bone marrow abnormalities. No fluid collections. IMPRESSION: 1. Severe pedal edema. 2. Severe chronic malpositioning and degeneration of the toes. No suspicious abnormalities. Electronically signed by Ramiro Garcia 01/17/2020 9:51 AM
[2020-01-17] MEDS: LASIX PO SCH (09:56)
[2020-01-17] MEDS: ZOLOFT PO SCH (09:56)
[2020-01-17] MEDS: LYRICA PO SCH ×2 (09:57→23:46)
[2020-01-17] MEDS: ARICEPT PO SCH (09:57)
[2020-01-17] MEDS: VITAMIN C PO SCH (09:57)
[2020-01-17] MEDS: VITAMIN B-12 PO SCH (09:57)
[2020-01-17] MEDS: NS 1,000 ML IV SCH ×3 (09:58→23:46)
[2020-01-17] MEDS: BETAPACE PO SCH ×2 (10:00→23:45)
[2020-01-17] MEDS: ELIQUIS PO SCH ×2 (10:01→23:45)
[2020-01-17] MEDS ORDERED: TYLENOL PO PRN (11:29)
[2020-01-17] MEDS: VANCOMYCIN 1 GM/NS 1 GM/250 ML IVPB IV SCH (11:36)
[2020-01-17] MEDS: BREO ELLIPTA 100/25 MCG INH INH SCH (17:09)
[2020-01-17] MEDS ORDERED: ZANAFLEX PO ONE (18:17)
[2020-01-17] MEDS: NORCO-7.5 PO PRN (19:44)
[2020-01-17] MEDS: COENZYME Q10 PO SCH (19:45)
[2020-01-17] MEDS ORDERED: ZANAFLEX PO PRN (20:58)
[2020-01-17] MEDS ORDERED: LASIX PO PRN (20:58)
[2020-01-17] MEDS ORDERED: ELIQUIS PO SCH (21:00)
[2020-01-17] MEDS ORDERED: PRAVACHOL PO SCH (21:00)
[2020-01-17] MEDS ORDERED: UBIDECARENONE PO SCH (21:00)
[2020-01-17] MEDS ORDERED: LYRICA PO SCH (21:00)
[2020-01-17] MEDS ORDERED: MIRAPEX PO SCH (21:00)
[2020-01-17] MEDS ORDERED: NON-FORMULARY MED (Cyanocobalamin (Vitamin B-12) [Vitamin B-12] 1,000 MCG) sublingual SCH (21:00)
--- NOTE | 2020-01-17 21:27 | PROGRESS NOTE ---
DATE: 01/17/2020 INDICATION FOR ADMISSION: Further diagnostic workup for cellulitis of the right foot, 2nd toe; rule out osteomyelitis. EVENTS OF THE DAY: Orthopedics has offered a consultative note. Infectious Disease is not available for inpatient consultation. However, informal discussion with regards to probable ID recommendations is obtain. 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 Cellulitis is suggested without evidence of osteomyelitis. The patient is without complaints or concerns other than persistent low back, right hip, right lower extremity pain after having been on the MRI table. She has advanced lumbosacral spondylosis as well as osteoarthritis of the hip and the knee. PHYSICAL EXAMINATION: Vital signs: Vital signs on the evening of rounds, blood pressure 105/54, respirations at 20, pulse at 54, temperature at 98 degrees. Blood cultures are pending at the time of dictation. I's and O's 1070 in and 2500 out, for -1.43 L. HEENT: Is unremarkable. Cardiovascular: Regular rate and rhythm without murmurs, gallops, or rubs. Lungs: Clear. Abdomen: Soft with nonspecific tenderness. No rebound, guarding, or rigidity. Lower extremity: Edema is intervally improved. Less erythema of the toe is noted. No evidence of lymphangitic spread from the dorsal portion of the right foot nor lymphangitic spread into the right lower extremity. [employer]: Cranial nerves 2-12 grossly intact. Patient is alert and oriented x3 without any cognitive deficiencies. IMPRESSION: A 79-year-old with advanced cellulitis secondary to 2nd toe deformity status post MRI and x-ray without evidence of osteomyelitis at this time. She continues on Zosyn and vancomycin. Additional issues at the time of admission including anemia, mild renal insufficiency with creatinine of 1.1, and proteinuria. Discussion with Infectious Disease nurse practitioner recommending transition off of Zosyn to Rocephin and continuation of vancomycin, perhaps with a PICC line placement and potential discharge on Thursday or with home health. I have been advised that there is no consultative opinion and/or recommendations formally from a local infectious disease doctor. Orthopedic note is reviewed. Orthopedic surgeon has not been by to see the patient as of this dictation or at least rounding this evening. It appears that without evidence of osteomyelitis, this might be best managed with conservative therapy including 10 to 14 days of IV antibiotics with interval reassessment. It is my opinion that with the toe abnormality as it is, the toe is at risk for repetitive trauma, ulcerative processes and subsequent infection and may ultimately result in a prophylactic amputation of the 2nd toe. Blood cultures are pending at the time of admission. I have advised the patient that if the blood cultures returned as negative, a PICC line will be placed on 01/18/2020, with anticipation of discharge to home with ongoing IV antibiotic for the next 7 to 10 days. The patient understands the course of treatment and plan. I have also updated the daughter by phone. Total time spent on the floor, documentation and discussion with family more than 45 minutes. cc: Hammad Amador DO
[2020-01-17] MEDS: LACTULOSE PO SCH (23:45)
[2020-01-17] MEDS: PRAVACHOL PO SCH (23:46)
[2020-01-17] MEDS: MIRAPEX PO SCH (23:46)
[2020-01-17] MEDS: VITAMIN D PO SCH (23:48)
[2020-01-18] MEDS: VANCOMYCIN 1 GM/NS 1 GM/250 ML IVPB IV SCH ×3 (00:54→22:26)
[2020-01-18] MEDS: PRILOSEC PO SCH (06:53)
[2020-01-18 06:56] LABS: BASO# 0.02 X1000 (0.0-0.2); BASO% 0.4 % (0.0-0.8); EOS# 0.09 X1000 (0.0-0.7); EOS% 1.8 % (0.0-10.0); HEMATOCRIT 30.5 % (37.0-47.0); IMM GRAN# 0.02 X1000 (0.0-0.04); IMM GRAN% 0.4 % (0.0-0.5); LYMPH# 1.29 X1000 (1.2-3.4); LYMPH% 26.1 % (20.5-51.1); MCH 29.3 PG (27-31); MCHC 29.5 g/dL (33-37); MCV 99.3 FL (81-99); MONO# 0.43 X1000 (0.11-0.59); MONO% 8.7 % (1.7-9.3); MPV 9.7 FL (7.4-10.4); NEUT# 3.09 X1000 (1.4-6.5); NEUT% 62.6 % (42.2-75.2); PLT 218 X1000 (130-400); RBC 3.07 XMIL (4.2-5.4); RDW 16.6 % (11.5-14.5); WBC 4.94 X1000 (4.8-10.8)
--- NOTE | 2020-01-18 07:21 | ORTHOPAEDICS PROGRESS NOTE ---
DATE: 01/18/2020 SUBJECTIVE: Ms. Saenz lying in bed this morning. She has her CPAP on. Overall, she says the toe is feeling a little better, but it is still bothering her. OBJECTIVE: Right lower extremity exam: She still some swelling to that 2nd toe. It is not near as red as it has been. There is no drainage out of it this morning, and it looks like the size of it has gone down some. ASSESSMENT: Right second toe cellulitis. PLAN: I think Ms. Saenz has improved on the IV antibiotics. From an Orthopedic standpoint, I would recommend her to be on IV antibiotics over the next 2 weeks. I will see her in a week in clinic, and we will see how she is progressing. If she is progressing well, we will continue. I discussed with her that if it turns red again and the toe gets re-infected, then I would recommend amputation. If we were going to do an amputation, we would bring her in just for a day surgery, and let her go home the same day. She would not have to be admitted to the hospital more than likely, but I will see her in a week in clinic for re-evaluation. cc: MD Hammad Angel, DO
[2020-01-18 07:27] LABS: AGAP 8; ALB/GLOB RATIO 1.1; ALKALINE PHOSPHATASE 80 U/L (32-104); BUN 18 mg/dL (8-22); CALCIUM 8.6 mg/dL (8.8-10.2); CHLORIDE 101 mmol/L (98-107); COSMO 283; CREATININE 0.9 mg/dL (0.5-0.9); ESTIMATED GFR 60; GLUCOSE 87 mg/dL (70-104); GOT 10 U/L (10-30); GPT 9 U/L (10-36); IRON SATURATION 18 %; POTASSIUM 4.3 mmol/L (3.5-5.1); SODIUM 141 mmol/L (136-145); TCO2 32 mmol/L (25-35); TIBC 184 ug/dL; TOTAL BILIRUBIN < 0.15 mg/dL (0.20-1.00); TOTAL IRON 33 ug/dL (49-151); TOTAL PROTEIN 5.7 g/dL (6.3-8.3); UNBOUND IRON 151 ug/dL (112-346)
[2020-01-18] MEDS: BREO ELLIPTA 100/25 MCG INH INH SCH (08:03)
[2020-01-18 08:42] LABS: INR 1.22; PROTIME 15.6 Seconds (11.0-16.0)
[2020-01-18 08:43] LABS: PTT 45.3 Seconds (22.3-41.8)
[2020-01-18] MEDS ORDERED: NS 250 ML ONE (08:57)
[2020-01-18] MEDS ORDERED: OMEPRAZOLE 20 MG PO SCH (09:00)
[2020-01-18] MEDS ORDERED: BREO ELLIPTA 100/25 MCG INH INH SCH (09:00)
[2020-01-18] MEDS ORDERED: ASCORBIC ACID PO SCH (09:00)
[2020-01-18] MEDS ORDERED: ARICEPT PO SCH (09:00)
[2020-01-18] MEDS: VITAMIN B-12 PO SCH (10:13)
[2020-01-18] MEDS: ELIQUIS PO SCH ×2 (10:13→22:26)
[2020-01-18] MEDS: ARICEPT PO SCH (10:13)
[2020-01-18] MEDS: BETAPACE PO SCH ×2 (10:13→22:25)
[2020-01-18] MEDS: VITAMIN C PO SCH (10:14)
[2020-01-18] MEDS: SYNTHROID PO SCH (10:14)
[2020-01-18] MEDS: ZOLOFT PO SCH (10:14)
[2020-01-18] MEDS: LASIX PO SCH (10:15)
[2020-01-18] MEDS: LACTULOSE PO SCH ×2 (10:15→22:25)
[2020-01-18] MEDS: COENZYME Q10 PO SCH (10:15)
[2020-01-18] MEDS: LYRICA PO SCH ×2 (10:15→22:26)
[2020-01-18] MEDS: ROCEPHIN 1 GM in NS 50 ML IV SCH (10:18)
[2020-01-18] MEDS: NS 1,000 ML IV SCH (10:28)
[2020-01-18] MEDS ORDERED: TYLENOL PO ONE (18:23)
[2020-01-18] MEDS ORDERED: LASIX IV ONE (18:23)
[2020-01-18] MEDS ORDERED: NS 500 ML IV ONE (18:23)
[2020-01-18] MEDS ORDERED: BENADRYL IV ONE (18:23)
--- NOTE | 2020-01-18 22:08 | PROGRESS NOTE ---
DATE: 01/18/2020 INDICATION FOR PROLONGED HOSPITALIZATION: Ongoing IV antibiotic for cellulitis of the right foot and toe status post PICC line placement today. Transition from Zosyn and vancomycin to Rocephin and vancomycin. Patient tolerating change in antibiotic without issues. The most pressing issue has to do with patient's report of increasing fatigue, this within the context of hypotension at 83/56. Blood pressure medications are reviewed. Laboratory obtained this morning is reviewed and discussed at the bedside with the patient. She is noted to have a falling hematocrit at 9.0 and 30.5, previously at 12.5 for hemoglobin and 41.8 for hematocrit, although this trend has been downward since the fall of 2018. She denies any bleeding diathesis. PICC line placement today was unremarkable. She describes lightheadedness and dizziness with minimal exertion including transitioning from the bed to the bedside commode. 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 She would likely benefit from a single unit of packed red blood cells. This morning Dr. Ovalles, Orthopedic Service, and myself convened at the bedside. The patient has been recommended for 10 to 14 days of IV antibiotics which can be provided at home. Dr. Ovalles is in agreement in this regard and would like to see the patient in approximately 7 to 10 days following discharge. OBJECTIVE: Vitals at the time of dictation: Blood pressure improved to 123/61, respirations at 17, pulse at 74, temperature at 98.5 degrees. Intake and output during hospitalization at 2.98 L in and 5.98 L out for -3.0 L. Weight on admission 259 and 11.02 ounces. No additional weights since admission. HEENT: Normocephalic, atraumatic. Neck: Soft and supple without lymphadenopathies or bruits. Cardiovascular: Regular rate and rhythm without murmurs, gallops, or rubs. Lungs: Clear. Abdomen: Soft with diffuse and nonspecific tenderness. No rebound, guarding, or rigidity. Extremities: Toe is examined in the presence of orthopedic surgeon. Ongoing cellulitic changes with pressure sore, non-ulcerative lesion on the dorsal aspect of the second toe. Tender to palpation by orthopedic assessment. Neurological: Cranial nerves 2 through 12 are grossly intact. Patient is alert and oriented x3 without any cognitive deficiencies. LABORATORY DATA: For this morning, H and H at 9.0 and 30.5, down from the day before yesterday's hemoglobin and hematocrit at 10.2 and 32.2, PT/INR at 15.6 and 1.22, PTT at 45.3, sodium 141, potassium 4.3, chloride 101, bicarb 32, BUN and creatinine at 18 and 0.9, GFR estimated at 60 mL per minute. Calcium at 8.6, iron at 33, TIBC at 184, percent saturation at 18%, AST and ALT at 10 and 9, albumin at 3.0, cortisol at 5.4. This would be considered likely low with first a.m. reading. Urinalysis is negative, and blood cultures have returned as unremarkable. IMPRESSION: 1. A 79-year-old with cellulitis without evidence of osteomyelitis of the right foot second toe, continuation of IV antibiotics. Orthopedics recommending 2 weeks of IV therapy. 2. Patient with ongoing anemia. Iron panel is reviewed showing presence of iron deficiency anemia. The patient's hemoglobin and hematocrit are trending downward with some symptoms including hypotension, lightheadedness, dizziness and shortness of breath, generalized weakness. She will be transfused 1 unit of packed red blood cells on the evening of 01/18/2020. 3. Issues with regards to dizziness and hypotension, raising concern for adrenal insufficiency. A.m. cortisol level is noted to be slightly low. Consider Cortrosyn stimulation test to ensure pituitary adrenal axis competency. We will be ordering a Cortrosyn stimulation test in the morning. I do suspect that after the transfusion of 1 unit of packed red blood cells, there will be noticeable improvement in hemoglobin and hematocrit. The patient will be further ready for discharge to home. I anticipate that she will have home health assistance as well as infusion service assistance with regards to ongoing vancomycin and Rocephin dosing as it relates to cellulitis of the right foot second toe. Again, no evidence of osteomyelitis at this time. The patient and the daughter understand the course of treatment and plan. No further issues. Note is dictated on the evening of rounds. cc: Hammad Amador DO
[2020-01-18] MEDS: PRAVACHOL PO SCH (22:26)
[2020-01-18] MEDS: VITAMIN D PO SCH (22:26)
[2020-01-18] MEDS: MIRAPEX PO SCH (22:26)
[2020-01-19] MEDS ORDERED: TYLENOL PO ONE (01:00)
[2020-01-19] MEDS ORDERED: BENADRYL IV ONE (01:00)
[2020-01-19] MEDS ORDERED: LASIX IV ONE (04:30)
[2020-01-19] MEDS: NS 1,000 ML IV SCH ×2 (05:03→11:15)
[2020-01-19] MEDS: PRILOSEC PO SCH (06:10)
[2020-01-19 07:13] LABS: BASO# 0.02 X1000 (0.0-0.2); BASO% 0.4 % (0.0-0.8); EOS# 0.12 X1000 (0.0-0.7); EOS% 2.3 % (0.0-10.0); HEMATOCRIT 33.6 % (37.0-47.0); HEMOGLOBIN 9.9 g/dL (12.0-16.0); LYMPH# 1.25 X1000 (1.2-3.4); LYMPH% 24.1 % (20.5-51.1); MCH 29.6 PG (27-31); MCHC 29.5 g/dL (33-37); MCV 100.3 FL (81-99); MONO# 0.39 X1000 (0.11-0.59); MONO% 7.5 % (1.7-9.3); MPV 9.5 FL (7.4-10.4); NEUT% 65.7 % (42.2-75.2); PLT 222 X1000 (130-400); RBC 3.35 XMIL (4.2-5.4); RDW 16.4 % (11.5-14.5); WBC 5.18 X1000 (4.8-10.8)
--- NOTE | 2020-01-19 07:29 | DISCHARGE SUMMARY ---
ADMISSION DATE: 01/16/2020 DISCHARGE DATE: 01/19/2020 DISCHARGE DIAGNOSIS: 1. Cellulitis of the second toe on the right foot secondary to anatomical abnormality, including hammertoe deformity. No evidence of osteomyelitis by plain film or magnetic resonance imaging performed during this admission. 2. Anemia complicated by hypotension, shortness of breath and dizziness, status post transfusion 1 unit packed red blood cells. Pre infusion hemoglobin and hematocrit at 9.0 and 30.5. Post infusion pending at the time of discharge. 3. Mild renal insufficiency with baseline BUN and creatinine at 27 and 1.1, improved with fluids and blood. Discharge BUN and creatinine at 18 and 0.9. Estimated glomerular filtration rate at 60 mL/minute. 4. Iron deficiency, etiology queried. Total serum iron 33, percent saturation at 18, not fully investigated or explored during this admission. 5. Low normal cortisol level baseline 5.4 pre Cortrosyn stim test. Cortrosyn stim test is anticipated for the morning of 01/19/2020. Results will be available at the time of follow- up. 6. Proteinuria, etiology queried. CONSULTATIONS: During admission including Orthopedics and Infectious Disease. Infectious Disease not available for management opinion. Orthopedics recommending conservative therapy with reassessment. Prophylactic amputation of the toe has also been briefly discussed. HOSPITAL COURSE: The patient was admitted on the for erythematous, swollen and painful toe on the right foot. This is secondary to anatomical abnormality, specifically hammertoe and/or claw form deformity. The abrasive area on the top part of the toe became secondarily infected resulting in marked erythema and swelling of the digit. There was no evidence of lymphangitic spread on admission. The patient was admitted and empirically started on Zosyn and vancomycin pending return of further diagnostic studies and blood cultures. Blood cultures remained normal. Plain film and MRI of the foot showing advanced degenerative disease with toe malformation, but no evidence of osteomyelitis. It is felt that the best course of treatment at this point would be ongoing antibiotic coverage. She will be discharged on vancomycin 2 g once a day and ceftriaxone 1 g once a day with interval follow up in 1 week with Orthopedics, and over the course of the next 7 to 10 days in the Internal Medicine Clinic. DISPOSITION: Arrangements have been made with [facility], the patient's home healthcare agency and [facility] for home antibiotics over the course of the next 2 weeks. No additional changes or recommendations to patient's baseline medications are made at this time. MEDICATIONS AT THE TIME OF DISCHARGE: Including Co Q-10 1 p.o. daily, Zanaflex 4 mg q. 8 hours p.r.n., Zoloft 200 mg p.o. daily, Phenergan 25 mg q. 8 hours p.r.n., gabapentin 150 mg p.o. b.i.d., Pravachol 40 mg p.o. at bedtime, Mirapex 1 mg p.o. at bedtime, Prilosec 20 mg once daily, Reglan 5 mL t.i.d. p.r.n., Lasix 40 mg once daily, Breo 100/25 one puff once daily, Aricept 10 mg p.o. daily, sublingual B 12 1000 mcg once daily, supplemental vitamin C 500 mg once daily, Eliquis 5 mg p.o. b.i.d., and Tylenol [id number] 650 mg 4 times a day as needed. She also is on milk of magnesia 30 mL every other day as needed and levothyroxine 125 mcg once daily, lactulose 30 mL p.o. b.i.d. p.r.n., vitamin D 1000 international units once daily. There are no changes to her medications, with the exception of continuing with the IV antibiotics. The patient understands the course of treatment and plan. No further issues at this time. cc: Hammad Amador DO
[2020-01-19] MEDS ORDERED: CORTROSYN IV ONE (08:00)
[2020-01-19] MEDS: ROCEPHIN 1 GM in NS 50 ML IV SCH (08:26)
[2020-01-19] MEDS: ZOLOFT PO SCH (08:26)
[2020-01-19] MEDS: BETAPACE PO SCH (08:26)
[2020-01-19] MEDS: VITAMIN C PO SCH (08:27)
[2020-01-19] MEDS: SYNTHROID PO SCH (08:27)
[2020-01-19] MEDS: LASIX PO SCH (08:27)
[2020-01-19] MEDS: ARICEPT PO SCH (08:27)
[2020-01-19] MEDS: VITAMIN B-12 PO SCH (08:27)
[2020-01-19] MEDS: COENZYME Q10 PO SCH (08:27)
[2020-01-19] MEDS: ELIQUIS PO SCH (08:27)
[2020-01-19] MEDS: LACTULOSE PO SCH (08:28)
[2020-01-19] MEDS: NORCO-7.5 PO PRN (08:35)
[2020-01-19] MEDS: LYRICA PO SCH (08:35)
[2020-01-19] MEDS ORDERED: MILK OF MAGNESIA PO SCH (09:00)
[2020-01-19] MEDS: BREO ELLIPTA 100/25 MCG INH INH SCH (11:03)
[2020-01-19] MEDS: VANCOMYCIN 1 GM/NS 1 GM/250 ML IVPB IV SCH (11:15)
[2020-01-19 13:19] VITALS: BP 120/57
== END 2020-01-19 16:20 | disposition home health service (06) | DRG 638 ==
LOC: DIRADM 15:15 → 3N 18:02
PROVIDERS: ADMIT Internal Medicine; ATTEND Internal Medicine